=== PATIENT | male | born 1935 | race Caucasian/White ===

== ENCOUNTER → 2016-12-13 | Outpatient (CLI) | payer OTHER ==
--- NOTE | 2016-12-13 14:49 | REP ---
PA and lateral chest: Comparison is 01/27/2012. There are no infiltrates or effusions. There are no masses. There is a stable granuloma in the right lower lobe, unchanged. There is chronic mild interstitial coarsening compatible with chronic interstitial lung disease. Cardiac size is borderline, unchanged. A single lead pacemaker is again noted. The cam, mediastinum, and bony thorax are unchanged and unremarkable. Impression: There are no acute cardiopulmonary findings. There are findings compatible with chronic lung disease. There is a stable granuloma in the right lower lobe. Signed by Paul Mariscal MD 12/13/2016 02:40 P
== END ==
LOC: M WUC 13:41
PROVIDERS: ATTEND Nurse Practitioner Family
DX: R05 Cough (principal)

== ENCOUNTER 2018-05-08 08:44 | Outpatient (RCR) | payer OTHER, MEDICARE | END 2018-05-12 | disposition home or self-care (01) | LOC: M PT 08:44 | DX: M25.551 Pain in right hip (principal); M25.552 Pain in left hip; Z51.89 Encounter for other specified aftercare | CPT/HCPCS: 97162 ==

== ENCOUNTER 2018-05-17 10:22 | Outpatient (RCR) | payer OTHER | END 2018-06-11 | LOC: M PT 10:22 | DX: M25.551 Pain in right hip (principal); M25.552 Pain in left hip | CPT/HCPCS: 97110 ==

== ENCOUNTER 2018-05-25 09:28 | Day surgery (SDC) | payer OTHER ==
[~2018-05-25 09:28] MED LIST: MIDAZOLAM INJ 2 MG/2 ML VIAL (J2250) As Ordered
[2018-05-25] MEDS: TROPICAMIDE 1% OPHTH SOLN 2ML OS (10:01)
[2018-05-25] MEDS: OFLOXACIN 0.3 % (OCUFLOX) OPTH SOL 5ML OS (10:01)
[2018-05-25] MEDS: PHENYLEPHRINE 2.5% OPHTH SOL 2ML OS (10:01)
[2018-05-25] MEDS: PROPARACAINE 0.5% OPHTH SOL 15ML OS (10:01)
[2018-05-25] MEDS: POVIDONE-IODINE 5% OPHTH PREP SOL 30ML As Ordered (10:34)
[2018-05-25] MEDS: BALANCED SALT IRRIGATION SOLUTION 500ML BAG (FOR OR EYE MACHINE) As Ordered (10:35)
[2018-05-25] MEDS: CEFUROXIME 1MG/0.1ML INTRACAMERAL INJ As Ordered (10:35)
[2018-05-25] MEDS: LIDOCAINE 0.75%/EPINEPHRINE 0.025% IN BSS 1ML SYR INTRACAMERAL (OR ONLY) As Ordered (10:35)
[2018-05-25] MEDS: DUOVISC (0.50ML VISCOAT/0.55ML PROVISC) OPHTH KIT As Ordered (10:35)
== END 2018-05-25 11:21 | disposition home or self-care (01) ==
LOC: M SDC 09:28
DX: H25.12 Age-related nuclear cataract, left eye (principal); I48.91 Unspecified atrial fibrillation; Z95.0 Presence of cardiac pacemaker; Z79.01 Long term (current) use of anticoagulants; K21.9 Gastro-esophageal reflux disease without esophagitis; J44.9 Chronic obstructive pulmonary disease, unspecified; Z79.899 Other long term (current) drug therapy
CPT/HCPCS: 66984

== ENCOUNTER 2018-06-08 07:52 | Day surgery (SDC) | payer OTHER ==
[~2018-06-08 07:52] MED LIST changes: -MIDAZOLAM INJ 2 MG/2 ML VIAL (J2250) As Ordered; +OFLOXACIN 0.3 % (OCUFLOX) OPTH SOL 5ML OD; +PHENYLEPHRINE 2.5% OPHTH SOL 2ML OD; +PROPARACAINE 0.5% OPHTH SOL 15ML OD; +TROPICAMIDE 1% OPHTH SOLN 2ML OD
[2018-06-08] MEDS ORDERED: CEFUROXIME 1MG/0.1ML INTRACAMERAL INJ As Ordered (08:52)
[2018-06-08] MEDS: LIDOCAINE 0.75%/EPINEPHRINE 0.025% IN BSS 1ML SYR INTRACAMERAL (OR ONLY) As Ordered (10:06)
[2018-06-08] MEDS: POVIDONE-IODINE 5% OPHTH PREP SOL 30ML As Ordered (10:06)
[2018-06-08] MEDS: BALANCED SALT IRRIGATION SOLUTION 500ML BAG (FOR OR EYE MACHINE) As Ordered (10:06)
[2018-06-08] MEDS: DUOVISC (0.50ML VISCOAT/0.55ML PROVISC) OPHTH KIT As Ordered (10:06)
[2018-06-08] MEDS: CEFUROXIME 1MG/0.1ML INTRACAMERAL INJ As Ordered (10:07)
[2018-06-08] MEDS ORDERED: MIDAZOLAM INJ 2 MG/2 ML VIAL (J2250) As Ordered (10:09)
[2018-06-08] MEDS ORDERED: fentaNYL 100 MCG/2 ML INJECTION (J3010) As Ordered (10:09)
== END 2018-06-08 11:00 | disposition home or self-care (01) ==
LOC: M SDC 07:52
DX: H25.11 Age-related nuclear cataract, right eye (principal); I48.91 Unspecified atrial fibrillation; Z95.0 Presence of cardiac pacemaker; Z79.899 Other long term (current) drug therapy; Z79.01 Long term (current) use of anticoagulants; J44.9 Chronic obstructive pulmonary disease, unspecified; K21.9 Gastro-esophageal reflux disease without esophagitis
CPT/HCPCS: 66984

== ENCOUNTER → 2018-08-09 | Outpatient (REF) | payer OTHER ==
[2018-08-09 10:19] LABS: INR 4.02; PROTHROMBIN TIME 40.1 SECONDS (12.1-14.4)
== END ==
LOC: M LAB REF 10:06
DX: I48.2 Chronic atrial fibrillation (principal); Z79.01 Long term (current) use of anticoagulants
CPT/HCPCS: 85610

== ENCOUNTER 2018-08-13 18:19 | Emergency (ER) | payer OTHER ==
[2018-08-13 19:30] LABS: BASO % 0.2 % (0.0-1.0); EOS % 0.3 % (0.0-3.0); HEMATOCRIT 37.6 % (42.0-52.0); IMMATURE GRANULOCYTE % 0.4 % (0-3.0); LYMPH # 1.5 10^3/uL (1.5-4.5); LYMPH % 10.9 % (24.0-44.0); MEAN CORPUSCULAR HEMOGLOBIN 30.6 pg (27.0-33.0); MEAN CORPUSCULAR HGB CONC 34.6 g/dl (32.0-36.5); MEAN CORPUSCULAR VOLUME 88.5 fl (80.0-96.0); MONO # 1.2 10^3/uL (0.0-0.8); MONO % 8.5 % (0.0-5.0); NEUTROPHILS # 10.8 10^3/uL (1.8-7.7); NEUTROPHILS % 79.7 % (36.0-66.0); PLATELET COUNT, AUTOMATED 172 10^3/uL (150-450); RED BLOOD COUNT 4.25 10^6/uL (4.30-6.10); RED CELL DISTRIBUTION WIDTH 13.7 % (11.5-14.5); WHITE BLOOD COUNT 13.5 10^3/uL (4.0-10.0)
[2018-08-13 19:40] LABS: INR 1.64; PROTHROMBIN TIME 19.7 SECONDS (12.1-14.4)
[2018-08-13 20:07] LABS: ANION GAP 11 MEQ/L (8-16); BLOOD UREA NITROGEN 26 MG/DL (7-18); CARBON DIOXIDE LEVEL 26 MEQ/L (21-32); CHLORIDE LEVEL 103 MEQ/L (98-107); CPK CREATINE PHOSPHOKINASE 83 U/L (39-308); CREATININE FOR GFR 1.21 MG/DL (0.70-1.30); GLOMERULAR FILTRATION RATE > 60.0 (>35); GLUCOSE, FASTING 115 MG/DL (70-100); POTASSIUM SERUM 3.4 MEQ/L (3.5-5.1); SODIUM LEVEL 140 MEQ/L (136-145); TROPONIN I < 0.02 NG/ML (< 0.10)
[2018-08-13 20:46] LABS: LACTIC ACID SEPSIS PROTOCOL 1.6 MMOL/L (0.4-2.0)
[2018-08-13 21:02] LABS: D-DIMER QUANT 902.76 ng/ml (<500)
[2018-08-13] MEDS ORDERED: ISOVUE-370 76% 100ML VIAL (Q9967) As Ordered (21:14)
[2018-08-13 21:24] LABS: INFLUENZA A AMPLIFICATION NEGATIVE (NEGATIVE); INFLUENZA B AMPLIFICATION NEGATIVE (NEGATIVE)
[2018-08-13] MEDS: CEFDINIR 300 MG CAP (OMNICEF) PO (22:28)
[2018-08-13] MEDS: WARFARIN SOD 5 MG TAB PO (22:28)
== END 2018-08-13 22:38 | disposition home or self-care (01) ==
LOC: M ED 18:19
DX: J18.1 Lobar pneumonia, unspecified organism (principal); R04.2 Hemoptysis; R79.1 Abnormal coagulation profile; R06.02 Shortness of breath; I48.91 Unspecified atrial fibrillation; I10 Essential (primary) hypertension; Z87.891 Personal history of nicotine dependence; Z79.899 Other long term (current) drug therapy; Z79.01 Long term (current) use of anticoagulants; Z79.51 Long term (current) use of inhaled steroids
CPT/HCPCS: Q9967

== ENCOUNTER → 2018-12-21 | Outpatient (REF) | payer OTHER ==
[~2018-12-21] MED LIST changes: +CEFD300CAP PO; +FURO40TA2 PO; +LISI-538 PO; +METO50TA7 PO; -OFLOXACIN 0.3 % (OCUFLOX) OPTH SOL 5ML OD; +OMEP40CA2 PO; -PHENYLEPHRINE 2.5% OPHTH SOL 2ML OD; +PRAV40TA2 PO; -PROPARACAINE 0.5% OPHTH SOL 15ML OD; +SYMB16INH INH; -TROPICAMIDE 1% OPHTH SOLN 2ML OD; +WARF4TAB51 PO
== END ==
LOC: M LAB REF 12:31
PROVIDERS: ATTEND Nurse Practitioner Adult Health
DX: R31.9 Hematuria, unspecified (principal)

== ENCOUNTER → 2018-12-28 | Outpatient (REF) | payer OTHER | LOC: M LAB REF 12:31 | PROVIDERS: ATTEND Nurse Practitioner Adult Health | DX: R31.9 Hematuria, unspecified (principal) ==

== ENCOUNTER 2019-01-25 08:02 | Day surgery (SDC) | payer MEDICARE ==
[~2019-01-25] VITALS: Ht 177.8 cm; Wt 73.5 kg
[2019-01-25] MEDS ORDERED: NS 1,000 ML IV ONE (08:45)
[2019-01-25] MEDS ORDERED: LIDOCAINE 2% INJ 100 MG/5 ML SDV (FOR ANES.) As Ordered ONE (09:26)
[2019-01-25] MEDS ORDERED: PROPOFOL 200 MG/20 ML VIAL As Ordered ONE ×2 (09:26→09:43)
--- NOTE | 2019-01-25 09:46 | ROOR ---
Patient Name: Fausto Nunez Procedure Date: 01/25/2019 9:29 AM Date of : 1935 Age: 83 Room: [facility] Gender: Male Note Status: Finalized Procedure: Colonoscopy Indications: Rectal bleeding, Constipation, Diarrhea Providers: Stephen Canales Jr, MD Referring MD: Rae Vital NP Requesting Provider: Medicines: Propofol per Anesthesia Complications: No immediate complications. Procedure: Pre-Anesthesia Assessment: - Prior to the procedure, a History and Physical was performed, and patient medications and allergies were reviewed. The patient is competent. The risks and benefits of the procedure and the sedation options and risks were discussed with the patient. All questions were answered and informed consent was obtained. Patient identification and proposed procedure were verified by the physician and the nurse in the pre-procedure area and in the procedure room. Mental Status Examination: alert and oriented. Airway Examination: normal oropharyngeal airway and neck mobility. Respiratory Examination: clear to auscultation. CV Examination: normal. ASA Grade Assessment: III - A patient with severe systemic disease. After reviewing the risks and benefits, the patient was deemed in satisfactory condition to undergo the procedure. The anesthesia plan was to use moderate sedation / analgesia (conscious sedation). Immediately prior to administration of medications, the patient was re-assessed for adequacy to receive sedatives. The heart rate, respiratory rate, oxygen saturations, blood pressure, adequacy of pulmonary ventilation, and response to care were monitored throughout the procedure. The physical status of the patient was re-assessed after the procedure. The Colonoscope was introduced through the anus and advanced to the sigmoid colon. The colonoscopy was performed without difficulty. The patient tolerated the procedure well. The quality of the bowel preparation was adequate. Findings: The rectum appeared normal. A fungating, infiltrative and ulcerated partially obstructing large mass was found in the sigmoid colon. The mass was circumferential. Oozing was present. Biopsies were taken with a cold forceps for histology. Area was tattooed with an injection of 3 mL of Spot (carbon black). Impression: - The rectum is normal. - Likely malignant partially obstructing tumor in the sigmoid colon. Biopsied. Tattooed. Recommendation: - Await pathology results. Stephen Canales MD Stephen Canales Jr, MD 01/25/2019 9:46:16 AM Electronically signed by Stephen Canales Jr, MD Number of Addenda: 0 Note Initiated On: 01/25/2019 9:29 AM Estimated Blood Loss: Estimated blood loss: none.
[2019-01-25 10:15] VITALS: BP 147/77
== END 2019-01-25 10:20 | disposition home or self-care (01) ==
LOC: M OPP 08:02
PROVIDERS: ATTEND Surgery
DX: K62.5 Hemorrhage of anus and rectum (principal); R19.7 Diarrhea, unspecified; N18.3 Chronic kidney disease, stage 3 (moderate); K21.9 Gastro-esophageal reflux disease without esophagitis; Z79.899 Other long term (current) drug therapy; Z87.891 Personal history of nicotine dependence

== ENCOUNTER → 2019-01-31 | Outpatient (CLI) | payer MEDICARE ==
[~2019-01-31] MED LIST changes: +METO1TAB7 PO
[2019-01-31 15:45] LABS: BASO % 0.6 % (0.0-1.0); EOS # 0.1 10^3/uL (0.0-0.50); HEMOGLOBIN 12.6 g/dl (13.5-17.5); LYMPH # 1.7 10^3/uL (1.5-4.5); LYMPH % 34.7 % (24.0-44.0); MEAN CORPUSCULAR HEMOGLOBIN 29.6 pg (27.0-33.0); MEAN CORPUSCULAR HGB CONC 33.2 g/dl (32.0-36.5); MEAN CORPUSCULAR VOLUME 89.2 fl (80.0-96.0); MONO # 0.6 10^3/uL (0.0-0.8); MONO % 12.9 % (0.0-5.0); NEUTROPHILS # 2.5 10^3/uL (1.8-7.7); NEUTROPHILS % 49.6 % (36.0-66.0); PLATELET COUNT, AUTOMATED 145 10^3/uL (150-450); RED BLOOD COUNT 4.26 10^6/uL (4.30-6.10)
[2019-01-31 16:07] LABS: CALCIUM LEVEL 8.2 MG/DL (8.8-10.2); CREATININE FOR GFR 1.41 MG/DL (0.70-1.30); GLOMERULAR FILTRATION RATE 51.1 (>35); TOTAL PROTEIN 6.5 GM/DL (6.4-8.2)
== END ==
LOC: M LAB 15:10
PROVIDERS: ATTEND Surgery
DX: C18.7 Malignant neoplasm of sigmoid colon (principal)

== ENCOUNTER → 2019-02-09 | Outpatient (CLI) | payer MEDICARE ==
[~2019-02-09] MED LIST changes: +GASTROGRAFIN SOLUTION 30ML (Q9963) As Ordered ONE; +ISOVUE-370 76% 100ML VIAL (Q9967) As Ordered ONE
--- NOTE | 2019-02-09 15:28 | REP ---
Clinical: History of sigmoid colon carcinoma. Technique: Axial contrast enhanced images from the lung bases to the pubic symphysis using oral (per protocol) and 100 ml Isovue 370 intravenous contrast material with precontrast and delayed images of the abdomen as well as coronal and sagittal re-formations. Findings: Lung bases demonstrate minimal bibasilar fibroatelectatic changes and bronchiectasis along with calcified granuloma in the right lower lobe. Cardiomegaly noted. The liver is essentially unremarkable. A 1.2 cm cyst is identified in the medial segment left lobe. Spleen demonstrate small parenchymal calcifications suggesting prior granulomatous disease. Pancreas, bilateral adrenal glands and kidneys are essentially normal. Cholelithiasis noted without acute cholecystitis. The enteric system demonstrates diffuse fecal stasis without obstruction or acute inflammatory process. Colonic diverticulosis noted. Mucosal thickening to the sigmoid is appreciated along with focal area measuring approximately 5.7 cm in length which demonstrates considerable mucosal thickening and near complete obstruction to the lumen (images [id number]) possibly representing the area of sigmoid carcinoma. Few adjacent lymph nodes are nonspecific and measure up to approximately 7 mm. Further evaluation of the pelvis demonstrates enlarged prostate gland with mass effect on the base of the bladder small fat containing left inguinal hernia noted. No ascites. No free air. No retroperitoneal adenopathy. Atherosclerotic changes to the aorta and vasculature noted without aneurysm. Musculoskeletal structures demonstrate degenerative changes without focal osseous abnormality. Impression: 1. Focal area of mucosal thickening narrowing to the underlying lumen involving the mid/distal sigmoid colon possibly related to the given history of sigmoid carcinoma. Small adjacent lymph nodes measure up to approximately 7 mm. 2. Colonic diverticulosis 3. Hepatic hypodensity likely cyst. 4. Enlarged prostate gland with mass effect on the base of the bladder. Electronically Signed by Matthew Blunt MD 02/09/2019 03:20 P
== END ==
LOC: M RAD 12:23
PROVIDERS: ATTEND Surgery
DX: C18.7 Malignant neoplasm of sigmoid colon (principal); K57.90 Diverticulosis of intestine, part unspecified, without perforation or abscess without bleeding; N40.0 Benign prostatic hyperplasia without lower urinary tract symptoms
CPT/HCPCS: 74178; Q9963; Q9967

== ENCOUNTER 2019-02-16 05:37 | Inpatient (IN) | payer MEDICARE ==
--- NOTE | 2019-02-15 11:53 | HPE ---
DATE OF ADMISSION: 02/16/2019 HISTORY OF PRESENT ILLNESS: The patient is an 83-year-old white male who presented to my office a month ago with a referral for rectal bleeding that has been going on for a month. He has had some abdominal pain, crampy abdominal pain with constipation and diarrhea. He has had some weight loss over the last several months. He has had abdominal bloating, cramps and was referred to the office for colonoscopy. He proceeded with a colonoscopy and indeed revealed a nearly obstructing malignancy in the sigmoid colon consistent with a colon cancer. The biopsy showed a high-grade dysplasia with most likely invasive cancer, but from its appearance with ulcerations etc. I anticipate this is a malignancy at the minimum T2/T3 lesion. In any case, the patient has had some rectal bleeding associated with his anticoagulation. PAST MEDICAL HISTORY: Significant for: History of hypertension. Hypercholesterolemia. Coronary artery disease. Kidney disease. Lung disease. History of pacemaker placement. History of prostate enlargement. History of cataract surgery. MEDICATIONS: Include: - Coumadin - Lasix - Atrovent - lisinopril - metoprolol - omeprazole - pravastatin - Symbicort PHYSICAL EXAMINATION: Physical exam reveals an 83-year-old male who looks stated age. HEENT is unremarkable. Neck supple without adenopathy. Lungs are clear to auscultation without crackles, wheeze or rhonchi. Heart is regular without murmur with a few irregular beats. Abdomen is softly distended, nontender. No guarding. No rebound. No peritoneal signs are appreciated. IMPRESSION AND PLAN: The patient has evidence of elevated CEA level of 3.6. CT consistent with a sigmoid colon mass and evidence of sigmoid colon cancer on his colonoscopy. We are proceeding with a laparoscopic sigmoid colon resection with possible splenic flexure takedown. The risks as well as benefits have been discussed with the patient at length, those including but not limited to infection, bleeding, damage to surrounding structures, including bowel, bladder nerve, vessels, kidney, ureter, spleen, and possible need for open operative intervention as well as possible need for ostomy. The patient understands the risks and would like to proceed with this as soon as possible. The patient understands that he will be hospitalized for several days postoperatively until his bowel function returns and then he will be discharged to home when he is doing well. Edited 02/15/2019 @ 1213 [facility]
[2019-02-16] VITALS (8 sets, daily range): BP systolic 149–164; BP diastolic 77–79; O2SAT 96
[~2019-02-16] VITALS: Ht 177.8 cm; Wt 77.5 kg
[~2019-02-16 05:37] MED LIST changes: -GASTROGRAFIN SOLUTION 30ML (Q9963) As Ordered ONE; -ISOVUE-370 76% 100ML VIAL (Q9967) As Ordered ONE
[2019-02-16] MEDS ORDERED: LR 1,000 ML IV SCH ×2 (06:00→11:30)
[2019-02-16] MEDS ORDERED: ERTAPENEM SODIUM 1 GM in NS MINI-BAG PLUS 50 ML IV ONE (06:00)
[2019-02-16 06:45] LABS: INR 1.25; PROTHROMBIN TIME 15.9 SECONDS (12.1-14.4)
[2019-02-16] MEDS ORDERED: BUPIVACAINE LIPOSOME/PF 1.3% 20ML VIAL (13.3MG/ML)(EXPAREL)(C9290 PER1MG) As Ordered ONE (07:03)
[2019-02-16] MEDS ORDERED: BUPIVACAINE HCL 0.25% 10 ML VIAL As Ordered ONE (07:03)
[2019-02-16] MEDS ORDERED: GLUCAGON FOR INJ 1 MG VIAL (J1610) As Ordered ONE (07:03)
[2019-02-16] MEDS ORDERED: BUPIVACAINE/EPIN 0.5% 30 ML VIAL As Ordered ONE (07:03)
[2019-02-16] MEDS ORDERED: ALBUTEROL SULFATE 2.5 MG/0.5 ML INH NEB SOLN As Ordered ONE (07:07)
[2019-02-16] MEDS ORDERED: dexameTHASONE 4 MG/ML 1ML VIAL (J1100) As Ordered ONE (07:18)
[2019-02-16] MEDS ORDERED: MIDAZOLAM INJ 2 MG/2 ML VIAL (J2250) As Ordered ONE (07:18)
[2019-02-16] MEDS ORDERED: ONDANSETRON 4MG/2ML VIAL (J2405) As Ordered ONE (07:18)
[2019-02-16] MEDS ORDERED: LIDOCAINE 2% INJ 100 MG/5 ML SDV (FOR ANES.) As Ordered ONE (07:18)
[2019-02-16] MEDS ORDERED: fentaNYL 250 MCG/5 ML INJECTION (J3010) As Ordered ONE (07:18)
[2019-02-16] MEDS ORDERED: PROPOFOL 200 MG/20 ML VIAL As Ordered ONE (07:18)
[2019-02-16] MEDS ORDERED: ROCURONIUM BROMIDE 50 MG/5 ML VIAL As Ordered ONE ×2 (07:18→08:58)
[2019-02-16] MEDS ORDERED: ALBUTEROL SULFATE 2.5 MG/0.5 ML INH NEB SOLN INH ONE (08:00)
[2019-02-16] MEDS ORDERED: PHENYLephrine HCL 500 MCG/5 ML (100MCG/ML) SYRINGE (J2370) As Ordered ONE (08:16)
[2019-02-16] MEDS ORDERED: LIDOCAINE 2% 5ML JELLY UROJET As Ordered ONE (08:52)
[2019-02-16] MEDS ORDERED: LISINOPRIL 20 MG TAB PO SCH (09:00)
[2019-02-16] MEDS ORDERED: HYDROmorphone HCL 2 MG/ML 1ML VIAL (J1170) As Ordered ONE (09:02)
[2019-02-16] MEDS ORDERED: NS 1,000 ML IV SCH (10:48)
[2019-02-16] MEDS ORDERED: MORPHINE 1MG/ML IN 0.9% NACL 100ML IV BAG As Ordered ONE (10:58)
[2019-02-16] MEDS ORDERED: MORPHINE 1MG/ML IN 0.9% NACL 100ML IV BAG IV PRN (11:00)
[2019-02-16] MEDS ORDERED: NALOXONE INJ 0.4 MG/1 ML VIAL (J2310) IV PRN (11:00)
[2019-02-16] MEDS ORDERED: IPRATROPIUM 0.5MG/ALBUTEROL 2.5MG INH SOL UD 3ML (DUONEB)(J7620) NEB PRN (11:00)
[2019-02-16] MEDS ORDERED: EPIDURAL/PCA KEYS XX PRN (11:00)
[2019-02-16] MEDS ORDERED: PROMETHAZINE INJ 25 MG/ML VIAL (J2550) IV PRN (11:00)
[2019-02-16] MEDS ORDERED: NALBUPHINE HCL 10 MG/ML AMP (J2300) IV PRN (11:00)
[2019-02-16] MEDS ORDERED: METOCLOPRAMIDE INJ 10MG/2ML VIAL (J2765) IV PRN (11:00)
[2019-02-16] MEDS ORDERED: ONDANSETRON 4MG/2ML VIAL (J2405) IV PRN ×2 (11:00→11:30)
[2019-02-16] MEDS ORDERED: PERCOCET 5MG/325MG TAB PO PRN (11:30)
[2019-02-16] MEDS ORDERED: fentaNYL 100 MCG/2 ML INJECTION (J3010) IV PRN (11:30)
[2019-02-16] MEDS ORDERED: HYDROMORPHONE HCL 0.5 MG/ 0.5 ML SYRINGE (J1170 PER 1) IV PRN (11:30)
[2019-02-16] MEDS ORDERED: OXYMETAZOLINE NASAL SPRAY (AFRIN) As Ordered ONE (12:35)
[2019-02-16] MEDS: PRAVASTATIN 20 MG TAB PO SCH (13:49)
[2019-02-16] MEDS: PANTOPRAZOLE 40MG INJ (PROTONIX) (C9113) IV SCH (13:49)
[2019-02-16] MEDS: NS 1,000 ML IV SCH ×2 (13:50→22:10)
[2019-02-16] MEDS: IPRATROPIUM 0.5MG/ALBUTEROL 2.5MG INH SOL UD 3ML (DUONEB)(J7620) NEB SCH ×2 (15:07→19:10)
--- NOTE | 2019-02-16 16:12 | CR.PDOC ---
General Date of Consultation: Feb 16, 2019 Consultation HPI 83 yo M with a medical history of a fib on coumadin, COPD, former smoker, HTN, HLD, and BPH, is s/p sigmoid colon surgery. The patient noticed rectal bleeding, for which he was seen by Dr. Canales. He has had abdominal pain with alternating constipation and diarrhea. Colonoscopy showed an obstructing mass in the sigmoidal colon. The patient had surgical resection of the tumor. Medicine was consulted for medical management. Currently, the patient has pain, and uses morphine MAIL ORDER SORTER pump. Pain is relatively controlled. He has not passed gas yet. PMH HTN, HLD, COPD, BPH, pacemaker PSH Prostate surgery Allergy NKDA FH Mother kidney disease, brothers and sister lung cancer from smoking SH Former smoker, quit at age of 48 Denies EtOH or drug abuse ROS GENERAL: The patient denies fevers, chills, or night sweats. HEENT: The patient denies headache, vision change, hearing loss, nosebleed or sore throat. CARDIOVASCULAR: Denies chest pain, palpitation or arrhythmia. RESPIRATORY: Denies shortness of breath, cough or wheezing. GASTROINTESTINAL: Admits to pain in the surgical site, denies nausea, vomiting, diarrhea. EXTREMITIES: Denies swelling. ENDOCRINE: Denies heat or cold intolerance or excessive thirst. NEUROLOGIC: Denies numbness or tingling. MUSCULOSKELETAL: Denies joint pain. PSYCHIATRIC: Denies anxiety or depression. HEMATOLOGICAL: Denies abnormal bleeding. PHYSICAL EXAMINATION: VITAL SIGNS: Stable. He is on 2 L O2. GENERAL: The patient is not in acute distress. Anicteric sclerae. Pupils are equal and reactive. No lesions in the oral cavity. NECK: Supple, nontender. CARDIOVASCULAR: Regular rhythm and rate. No murmurs, rubs or gallops. RESPIRATORY: Clear to auscultation bilaterally. No rales, wheezing or rhonchi. ABDOMEN: Soft, nontender, nondistended. Surgical wound wrapped. EXTREMITIES: No cyanosis, clubbing. NEUROLOGIC: Cranial nerves are grossly intact. He is AO x3. SKIN: No other sores or blisters. Assessment and Plan 83 yo M is s/p surgical resection of the tumor in the sigmoid colon. # HTN, HLD, a fib - Currently, heart rate is well controlled. - Hold off coumadin. Once the patient is deemed to have no more risk of bleeding from the surgical wound, it will be re-initiated. - Continue metoprolol, and lisinopril, his home medications. - Continue statin, his home medication. # Surgical pain - The patient is morphine MAIL ORDER SORTER pump. Pain is adequately controlled currently. # COPD - Continue symbicort and duoneb ATC # GI ppx - Continue protonix Vital Signs/I&O Vital Signs Date Time Temp Pulse Resp B/P (MAP) Pulse Ox O2 Delivery O2 Flow Rate FiO2 02/16/19 15:21 97.6 86 9 149/79 (102) 99 2.0 Laboratory Data Labs 24H Laboratory Tests 2 02/16/19 06:18: Prothrombin Time 15.9H, Prothromb Time International Ratio 1.25 CBC/BMP Laboratory Tests 02/16/19 06:02 Allergies Coded Allergies: No Known Allergies (Unverified , 01/16/19) Home Medications Scheduled Budesonide/Formoterol (Symbicort 160-4.5 Mcg Inhaler) 60 Puff/Inhaler Aers, 2 PUFF INH BID for 30 Days, #1 (Reported) Furosemide (Furosemide) 40 Mg Tab, 40 MG PO DAILY, (Reported) Lisinopril (Lisinopril) 20 Mg Tab, 20 MG PO DAILY, (Reported) Metoprolol Succinate (Metoprolol Succinate) 50 Mg Tab.er.24h, 50 MG PO DAILY, (Reported) Pravastatin Sodium (Pravastatin Sodium) 40 Mg Tab, 40 MG PO DAILY, (Reported) Warfarin Sodium (Warfarin Sodium) 2 Mg Tab, 2 MG PO DAILY, (Reported) YARELI DODSON MD Feb 16, 2019 16:12
--- NOTE | 2019-02-16 16:43 | CR ---
DATE OF CONSULTATION: 02/16/2019 This is an intraoperative consult from Dr. Stephen Canales. REASON FOR CONSULTATION: Hematuria. HISTORY: Mr. Nunez is an 83-year-old gentleman undergoing laparoscopic (lap) assisted sigmoid colectomy for malignant disease. A small caliber catheter was placed in case and went in without difficulty; however, the patient started having bleeding and recurrent clotting of the catheter, which has now been withdrawn. Per history, he has prior transurethral resection of the prostate (TURP). He has been on chronic Coumadin therapy but current INR 1.25. For the remainder of his past medical, surgical, social, family history, review o systems, please refer to the dictated history and physical on the chart. History is obtained from the chart, the patient being under anesthetic. Of note, this is an intraoperative consult. At the time of my arrival in the operating room, the patient is anesthetized and undergoing microscopic sigmoid colectomy. He is draped out and in a lithotomy position. Examination of the genitalia shows descended testes, no mass. The phallus is without lesions. He is circumcised. Remainder of exam unremarkable. IMPRESSION: Hematuria causing clot obstruction with possible urethral false passage. PLAN: Endoscopic evaluation with flexible cystoscopy for catheter placement.
[2019-02-16] MEDS: SYMBICORT 160/4.5MCG INHALER 6GM INH SCH (19:10)
--- NOTE | 2019-02-16 23:13 | RO ---
DATE OF PROCEDURE: 02/16/2019 PREPROCEDURE DIAGNOSIS: POSTPROCEDURE DIAGNOSIS: PROCEDURE: Flexible cystoscopy with catheter placement. SURGEON: Isaiah Car MD RIM BUSTER: ANESTHESIA: General. INDICATION: This 83-year-old man was found to have gross hematuria upon placement of a catheter, which was difficult, the catheter becoming occluded on several occasions despite being passed fairly easily into the bladder. There was some question of urethral false passage. The patient does have a past history of Coumadin use, but current INR 1.25. DESCRIPTION OF PROCEDURE: With the patient under anesthesia, a 16-Namibian flexible cystoscope was advanced without difficulty into the urethra. On inspection, the urethra was without lesions. The urethral sphincter was noted to be intact. The prostatic fossa appeared open but was actively oozing. There may have been some undermining of the bladder neck, but we were able to readily pass the cystoscope into the bladder, which was widely open. Ureteral orifices were visualized and effluxing clear urine There was some blood and clot in the bladder partially obscuring the detailed view of the bladder mucosa. We passed a flexible 0.38 inch wire through the scope into the bladder, and the scope was withdrawn. A 20-Namibian [place] Tip catheter was passed over the wire without difficulty, and the returning urine was rosae. The catheter was inflated with 10 mL. The direction of the case was returned to Dr. Canales. RECOMMENDATIONS: Would advise leaving the catheter per usual postoperative routine. Please contact me if the patient is in need of any assistance following catheter removal. The catheter may be irrigated as needed should clots appear. Of note, no intraoperative complications. Blood loss: Less than 10 mL.
[2019-02-17] MEDS: IPRATROPIUM 0.5MG/ALBUTEROL 2.5MG INH SOL UD 3ML (DUONEB)(J7620) NEB SCH ×4 (01:42→20:00)
[2019-02-17 02:00] VITALS: BP 152/77
[2019-02-17] MEDS: NS 1,000 ML IV SCH ×3 (02:48→18:48)
[2019-02-17 06:00] VITALS: BP 149/69
[2019-02-17 06:01] LABS: HEMATOCRIT 38.6 % (42.0-52.0); HEMOGLOBIN 12.7 g/dl (13.5-17.5); MEAN CORPUSCULAR HEMOGLOBIN 30.3 pg (27.0-33.0); MEAN CORPUSCULAR HGB CONC 32.9 g/dl (32.0-36.5); MEAN CORPUSCULAR VOLUME 92.1 fl (80.0-96.0); PLATELET COUNT, AUTOMATED 171 10^3/uL (150-450); RED BLOOD COUNT 4.19 10^6/uL (4.30-6.10); WHITE BLOOD COUNT 9.2 10^3/uL (4.0-10.0)
[2019-02-17 06:28] LABS: ALBUMIN 2.6 GM/DL (3.2-5.2); ALT/SGPT 21 U/L (12-78); BILIRUBIN,TOTAL 0.8 MG/DL (0.2-1.0); BLOOD UREA NITROGEN 16 MG/DL (7-18); CALCIUM LEVEL 7.9 MG/DL (8.8-10.2); CARBON DIOXIDE LEVEL 27 MEQ/L (21-32); CHLORIDE LEVEL 108 MEQ/L (98-107); GLOMERULAR FILTRATION RATE > 60.0 (>35); GLUCOSE, FASTING 93 MG/DL (70-100); POTASSIUM SERUM 4.7 MEQ/L (3.5-5.1); SODIUM LEVEL 140 MEQ/L (136-145); TOTAL PROTEIN 6.1 GM/DL (6.4-8.2)
[2019-02-17] MEDS ORDERED: ERTAPENEM SODIUM 1 GM in NS MINI-BAG PLUS 50 ML IV ONE (08:00)
[2019-02-17] MEDS: PANTOPRAZOLE 40MG INJ (PROTONIX) (C9113) IV SCH (08:17)
[2019-02-17] MEDS: PRAVASTATIN 20 MG TAB PO SCH (08:20)
[2019-02-17] MEDS: LISINOPRIL 20 MG TAB PO SCH ×2 (08:20→21:30)
[2019-02-17] MEDS: SYMBICORT 160/4.5MCG INHALER 6GM INH SCH ×2 (08:58→19:47)
[2019-02-17] MEDS ORDERED: METOPROLOL SUCC (TopROL XL) 50MG **XL** TAB PO SCH (09:00)
[2019-02-17] MEDS: ALVIMOPAN 12 MG CAPSULE (ENTEREG) PO SCH ×2 (09:57→21:30)
[2019-02-17 10:00] VITALS: BP 149/71
--- NOTE | 2019-02-17 13:38 | IPNPDOC ---
Subjective Date Seen The patient was seen on 02/17/19. Subjective Chief Complaint/HPI The patient feels better. Pain is less. Breathing is the same, no worsening or better. Has not passed gas yet. No BM. General: Denies: ROS Unobtainable, Chills, Night Sweats, Fatigue, Malaise, Normal Appetite, Other Symptoms Constitutional: Denies: Chills, Fever, Malaise, Night Sweats, Weakness, Fatig ue, Weight Loss, Lethargy, Other Eyes: Denies: Pain, Vision change, Conjunctivae inflammation, Eyelid inflammation, Redness, Other ENT: Denies: Head Aches, Ear Pain, Dysphagia, Sinus Congestion, Post Nasal Drip, Sore Throat, Epistaxis, Other Symptoms Skin: Denies: Rash, Lesions, Jaundice, Bruising, Itching, Dry, Breakdown, Nail Changes, Other Pulmonary: Reports: Dyspnea Cardiovascular: Denies: Chest Pain, Palpitations, Orthopnea, Paroxysmal Noc. Dyspnea, Edema, Lt Headedness, Other Symptoms Gastrointestinal: Reports: Abdominal Pain Genitourinary: Denies: Dysuria, Frequency, Incontinence, Hematuria, Retention, Other Symptoms Hematologic: Denies: Bruising, Bleeding Excessively, Petecchia, Purpura, Enlarged Lymph Nodes, Other Hematologic Endocrine: Denies: Polydipsia, Polyphagia, Polyuria, Heat Intolerance, Cold Intolerance, Other Endocrine Sx Musculoskeletal: Denies: Neck Pain, Back Pain, Shoulder Pain, Arm Pain, Hand Pain, Leg Pain, Foot Pain, Joint Pain, Muscle Pain, Spasms, Other Symptoms Neurological: Denies: Weakness, Numbness, Incoordination, Change in speech, Confusion, Seizures, Other Symptoms Psych: Denies: Mood Normal, Anxiety, Depression, Memory Issues, Thoughts of Self Harm, Anger, Thoughts of Harming Other, Other Psych Objective Physical Examination General Exam: Positive: Alert Eye Exam: Positive: PERRLA ENT Exam: Positive: Atraumatic, Mucous membr. moist/pink Neck Exam: Positive: Supple Chest Exam: Positive: Clear to auscultation Heart Exam: Positive: Irregular Rhythm Telemetry: Positive: No significant arrhythmia Abdomen Exam: Positive: Other (surgical wound) Extremity Exam: Positive: Other (no edema) Skin Exam: Positive: Nl turgor and temperature Neuro Exam: Positive: Normal Speech Psych Exam: Positive: Mood NL Assessment /Plan Problems (1) Colon cancer Problem Text: # HTN, HLD, a fib - Currently, heart rate is well controlled. - Hold off coumadin. Once the patient is deemed to have no more risk of bleeding from the surgical wound, it will be re-initiated. He still has bloody oozing. - Continue metoprolol. Lisinopril 20 daily was increased to 20 BID, given SBP 140-150 persistently. - Continue statin, his home medication. # Surgical pain - The patient is morphine PRINT DECORATOR pump. Pain is adequately controlled currently. # COPD - Continue symbicort and duoneb ATC # GI ppx - Continue protonix # Urination - Urology is following, putting the espinosa. Plan/VTE VTE Prophylaxis Ordered?: No (temporarily held due to surgical wound bleeding) VS, I&O, 24H, Fishbone Vital Signs/I&O Vital Signs Date Time Temp Pulse Resp B/P (MAP) Pulse Ox O2 Delivery O2 Flow Rate FiO2 02/17/19 10:00 97.8 81 10 149/71 (97) 94 02/16/19 17:38 2.0 I&O- Last 24 Hours up to 6 AM 02/17/19 06:00 Intake Total 4100 ml Output Total 935 ml Balance 3165 ml Laboratory Data 24H LABS Laboratory Tests 2 02/17/19 05:20: Nucleated Red Blood Cells % (auto) 0.0, Anion Gap 5L, Glomerular Filtration Rate > 60.0, Blood Urea Nitrogen 16, Creatinine 1.10, Sodium Level 140, Potassium Level 4.7#, Chloride Level 108H, Carbon Dioxide Level 27, Calcium Level 7.9L, Aspartate Amino Transf (AST/SGOT) 28, Alanine Aminotransferase (ALT/SGPT) 21, Alkaline Phosphatase 63, Total Bilirubin 0.8, Total Protein 6.1L, Albumin 2.6L, Albumin/Globulin Ratio 0.74L CBC/BMP Laboratory Tests 02/17/19 05:20 Red Blood Count 4.19 L, Mean Corpuscular Volume 92.1, Mean Corpuscular Hemoglobin 30.3, Mean Corpuscular Hemoglobin Concent 32.9, Red Cell Distribution Width 15.2 H, Calcium Level 7.9 L, Aspartate Amino Transf (AST/SGOT) 28, Alanine Aminotransferase (ALT/SGPT) 21, Alkaline Phosphatase 63, Total Bilirubin 0.8, Total Protein 6.1 L, Albumin 2.6 L YARELI DODSON MD Feb 17, 2019 13:38
--- NOTE | 2019-02-17 13:58 | IPN ---
DATE: 02/17/2019 The patient has done very well overnight without any complaints. No nausea, no vomiting. No flatus. No bowel movements but overall is sitting up in the chair feeling quite good. He has been afebrile. His urine output has been good and clearing up quite nicely. His Kwasi-Barrientos drain is serosanguineous. Abdomen is softly distended, nontender. Dressings are dry, intact. IMPRESSION AND PLAN: The patient is status post sigmoid colectomy with coloproctostomy and overall seems to be doing well from surgical standpoint and slowly progressing his activity is reasonable at this time. Typically 48 hours to a little bit longer is when it takes the bowel to return its function and thus will keep him nothing by mouth for today and probably start him on some clear liquids or at least some sips of clears tomorrow. Encouraged him to increase his activity today and will re-evaluate him later.
[2019-02-17 14:00] VITALS: BP 148/72
--- NOTE | 2019-02-17 14:10 | RO ---
DATE OF PROCEDURE: 02/16/2019 PREOPERATIVE DIAGNOSIS: Sigmoid colon cancer. POSTOPERATIVE DIAGNOSIS: Sigmoid colon cancer. PROCEDURE: Laparoscopic sigmoid colectomy with coloproctostomy (LAR). SURGEON: Stephen Canales Jr., MD RECORDS MANAGEMENT ENGINEER: Paul Swanson DO (provided assistance with retraction, bowel resection, and anastomosis). ANESTHESIA: General endotracheal anesthesia. ESTIMATED BLOOD LOSS (EBL): Minimal. FLUIDS: Crystalloid. DESCRIPTION OF PROCEDURE: Brief procedure summary: The patient was brought to the operating room and was given general anesthesia. After adequate anesthesia and preoperative antibiotics were given, the patient was prepped and draped in usual sterile fashion. Next, a supraumbilical incision was made with skin knife. Blunt dissection was carried down to fascia. Fascia was entered using a Veress needle, insufflated to 15 mm of pressure. A dilating 10 mm trocar was placed under this at this time, and left lower quadrant 5 mm, right lower quadrant 12 mm, left upper quadrant 5 mm, and right upper quadrant 5 mm trocars were placed. The patient was placed in steep Trendelenburg at this time, and the bowel was looped in the pelvis and adherent to the pelvic sidewall on the right-hand side. The targeting with the carbon spot had been performed preoperatively, and I could see the distal end of the tumor in this area. In any case, once this was identified, the dissection of the descending colon/sigmoid colon on the white line of Toldt was performed with harmonic scalpel all the way down to the pelvic reflection. Given the twist of the distal sigmoid colon at the peritoneal reflection, it was quite difficult to get on the backside of this, but eventually I was able to get on the backside of this and mobilized up this sigmoid colon. Then, the right side of the peritoneum was taken down with harmonic scalpel, as well. In the middle of this dissection, it was obvious that the bladder was starting to distend up more, and we had some difficulties with emptying the bladder/the Stewart catheter working, and what was obvious was that the catheter was not functioning well; and thus, after attempts were made at reinserting a Stewart, at this time, the urologist was asked to come by and place a Stewart, which was performed without incident. Then, we continued on our dissection and our operative intervention, where a window around the sigmoid vessels was created. The sigmoid vessels were taken with [place] 60 vascular load, and the rectal branch off the sigmoid was taken with the [place] 60 stapler, and the rectum at the rectosigmoid junction was taken with [place] 60 green load. At this point, it seemed like I needed a little extra room to bring things down; and thus, I mobilized the descending colon a little bit further along the white line of Toldt, mobilizing off the Gerota's on this side, I could still see the ureter throughout its course quite nicely; and care was taken to avoid dissection in that plane. Next, the bowel was brought out through a periumbilical incision and transected after placing a 29 EEA anvil within the proximal bowel. Stapled and then an anastomosis was created, and the doughnuts were intact. Air insufflation revealed no air leak, and the Kwasi-Barrientos drain was left in the bed of the dissection. The right lower quadrant 12 mm trocar was closed with a Delano-Herb. All incisions were closed with robert. Exparel was used in the periumbilical incision, as well as in the right lower quadrant incision. A dry sterile dressing was applied. The patient was awakened, extubated, brought to the recovery room awake, alert, and hemodynamically stable. Sponge and needle counts correct times two. MTDD
[2019-02-17 18:00] VITALS: BP 156/78
[2019-02-17 22:00] VITALS: BP 158/81; O2SAT 92
[2019-02-18 02:00] VITALS: BP 150/82
[2019-02-18] MEDS: IPRATROPIUM 0.5MG/ALBUTEROL 2.5MG INH SOL UD 3ML (DUONEB)(J7620) NEB SCH ×4 (02:00→20:00)
[2019-02-18] MEDS: NS 1,000 ML IV SCH (05:07)
[2019-02-18 06:00] VITALS: BP 156/87
[2019-02-18 06:27] LABS: HEMOGLOBIN 12.7 g/dl (13.5-17.5); MEAN CORPUSCULAR HEMOGLOBIN 29.3 pg (27.0-33.0); MEAN CORPUSCULAR HGB CONC 32.6 g/dl (32.0-36.5); MEAN CORPUSCULAR VOLUME 90.1 fl (80.0-96.0); PLATELET COUNT, AUTOMATED 183 10^3/uL (150-450); RED BLOOD COUNT 4.33 10^6/uL (4.30-6.10); WHITE BLOOD COUNT 7.6 10^3/uL (4.0-10.0)
[2019-02-18 06:47] LABS: BLOOD UREA NITROGEN 22 MG/DL (7-18); CALCIUM LEVEL 8.5 MG/DL (8.8-10.2); CARBON DIOXIDE LEVEL 22 MEQ/L (21-32); CHLORIDE LEVEL 112 MEQ/L (98-107); CREATININE FOR GFR 1.02 MG/DL (0.70-1.30); GLOMERULAR FILTRATION RATE > 60.0 (>35); GLUCOSE, FASTING 83 MG/DL (70-100); POTASSIUM SERUM 4.6 MEQ/L (3.5-5.1); SODIUM LEVEL 141 MEQ/L (136-145)
[2019-02-18] MEDS: SYMBICORT 160/4.5MCG INHALER 6GM INH SCH ×2 (07:54→21:04)
[2019-02-18] MEDS ORDERED: METOPROLOL SUCC *XL* 25MG TAB (TopROL *XL*) PO SCH (09:00)
[2019-02-18] MEDS: ALVIMOPAN 12 MG CAPSULE (ENTEREG) PO SCH ×2 (09:08→21:01)
[2019-02-18] MEDS: PRAVASTATIN 20 MG TAB PO SCH (09:08)
[2019-02-18] MEDS: LISINOPRIL 20 MG TAB PO SCH ×2 (09:09→21:01)
[2019-02-18] MEDS: PANTOPRAZOLE 40MG INJ (PROTONIX) (C9113) IV SCH (09:09)
[2019-02-18 10:00] VITALS: BP 158/88
--- NOTE | 2019-02-18 13:37 | IPNPDOC ---
Subjective Date Seen The patient was seen on 02/18/19. Subjective Chief Complaint/HPI The patient feels better. He has not passed gas yet, no BM yet. He still has "pink" discharge from the wound. Pain is better controlled today. General: Denies: ROS Unobtainable, Chills, Night Sweats, Fatigue, Malaise, Normal Appetite, Other Symptoms Constitutional: Denies: Chills, Fever, Malaise, Night Sweats, Weakness, Fatigue, Weight Loss, Lethargy, Other Eyes: Denies: Pain, Vision change, Conjunctivae inflammation, Eyelid inflammation, Redness, Other ENT: Denies: Head Aches, Ear Pain, Dysphagia, Sinus Congestion, Post Nasal Drip, Sore Throat, Epistaxis, Other Symptoms Skin: Denies: Rash, Lesions, Jaundice, Bruising, Itching, Dry, Breakdown, Nail Changes, Other Pulmonary: Denies: Dyspnea, Cough, Pleuritic Chest Pain, Other Symptoms Cardiovascular: Denies: Chest Pain, Palpitations, Orthopnea, Paroxysmal Noc. Dyspnea, Edema, Lt Headedness, Other Symptoms Gastrointestinal: Reports: Abdominal Pain Genitourinary: Denies: Dysuria, Frequency, Incontinence, Hematuria, Retention, Other Symptoms Hematologic: Denies: Bruising, Bleeding Excessively, Petecchia, Purpura, Enlarged Lymph Nodes, Other Hematologic Endocrine: Denies: Polydipsia, Polyphagia, Polyuria, Heat Intolerance, Cold Intolerance, Other Endocrine Sx Musculoskeletal: Denies: Neck Pain, Back Pain, Shoulder Pain, Arm Pain, Hand Pain, Leg Pain, Foot Pain, Joint Pain, Muscle Pain, Spasms, Other Symptoms Neurological: Denies: Weakness, Numbness, Incoordination, Change in speech, Confusion, Seizures, Other Symptoms Psych: Denies: Mood Normal, Anxiety, Depression, Memory Issues, Thoughts of Self Harm, Anger, Thoughts of Harming Other, Other Psych Objective Physical Examination General Exam: Positive: Alert Eye Exam: Positive: PERRLA ENT Exam: Positive: Atraumatic, Mucous membr. moist/pink Neck Exam: Positive: Supple Chest Exam: Positive: Clear to auscultation Heart Exam: Positive: Irregular Rhythm Telemetry: Positive: No significant arrhythmia Abdomen Exam: Positive: Other (surgical wound) Extremity Exam: Positive: Other (no edema) Skin Exam: Positive: Nl turgor and temperature Neuro Exam: Positive: Normal Speech Psych Exam: Positive: Mood NL Assessment /Plan Problems (1) Colon cancer Problem Text: # HTN, HLD, a fib - Currently, heart rate is well controlled. - Hold off coumadin. He still has bloody discharge. - Continue metoprolol. Lisinopril 20 daily was increased to 20 BID, given SBP 1 40-150 persistently. Metoprolol was also increased to 75 daily from 50. - Continue statin, his home medication. 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 Pain is adequately controlled currently. # COPD - Continue symbicort and duoneb ATC # GI ppx - Continue protonix # Urination - Urology is following, putting the espinosa. Plan/VTE VTE Prophylaxis Ordered?: No (temporarily held due to surgical wound bleeding) VS, I&O, 24H, Fishbone Vital Signs/I&O Vital Signs Date Time Temp Pulse Resp B/P (MAP) Pulse Ox O2 Delivery O2 Flow Rate FiO2 02/18/19 10:00 97.7 87 12 158/88 (111) 95 02/16/19 17:38 2.0 I&O- Last 24 Hours up to 6 AM 02/18/19 06:00 Intake Total 3025 ml Output Total 910 ml Balance 2115 ml Laboratory Data 24H LABS Laboratory Tests 2 02/18/19 05:27: Nucleated Red Blood Cells % (auto) 0.0, Anion Gap 7L, Glomerular Filtration Rate > 60.0, Blood Urea Nitrogen 22H, Creatinine 1.02, Sodium Level 141, Potassium Level 4.6, Chloride Level 112H, Carbon Dioxide Level 22, Calcium Level 8.5L CBC/BMP Laboratory Tests 02/18/19 05:27 Red Blood Count 4.33, Mean Corpuscular Volume 90.1, Mean Corpuscular Hemoglobin 29.3, Mean Corpuscular Hemoglobin Concent 32.6, Red Cell Distribution Width 15.4 H, Calcium Level 8.5 L YARELI DODSON MD Feb 18, 2019 13:37
[2019-02-18 14:00] VITALS: BP 162/68
[2019-02-18] MEDS: ACETAMINOPHEN TAB 650MG DOSE (2X325MG) PO PRN (16:44)
[2019-02-18] MEDS ORDERED: MORPHINE 4 MG/ML 1ML VIAL/SYRINGE (J2270) IV PRN (18:00)
[2019-02-18] MEDS ORDERED: NORCO, ANEXSIA 5/325MG TABLET (HYDROcodone/ACETAMINOPHEN) PO PRN (18:00)
--- NOTE | 2019-02-18 21:33 | IPN ---
DATE: 02/18/2019 CHIEF COMPLAINT: The patient is status post colectomy and doing well without any significant other complaints at this time. Overall, his hematocrit has been stable and he has been out of bed for a couple of walks this morning. His vital signs show that he has been afebrile. Blood pressure is good. Urine output has been adequate, but he continues to have some serosanguineous drainage from his Kwasi-Barrientos drain. His urine appears nice and clear. Otherwise, his incisions are healing nicely without any erythema, drainage or discharge. IMPRESSION/PLAN: The patient is status post colectomy. At this point, we will start him on some clear liquids and we will see how he does with this, and we will progress his diet, as well as activity as tolerated over the next 24 to 48 hours. 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 From a standpoint of anticoagulation, he still has some bloody drainage and I would like to avoid restarting his anticoagulation for right now and we will see how he does over the next 24 to 48 hours. From a fluid standpoint, he seems to be doing well. We will hep lock his IV and his weight has definitely increased, so we may need to restart his diuretics, and at this point he is not seemingly overloaded at this time.
[2019-02-18 22:00] VITALS: BP 165/90
[2019-02-19] MEDS: IPRATROPIUM 0.5MG/ALBUTEROL 2.5MG INH SOL UD 3ML (DUONEB)(J7620) NEB SCH ×4 (01:57→20:00)
[2019-02-19] MEDS: ACETAMINOPHEN TAB 650MG DOSE (2X325MG) PO PRN ×3 (02:54→18:31)
--- NOTE | 2019-02-19 03:20 | IPNPDOC ---
Date Seen The patient was seen on 02/19/19. Progress Note Was notified by Nurse/telemetry nurse regarding patient's episodes of non sustained PVCs intermittently as was as noted Ed. Patient HD stable without clinical changes. Mg added to morning BMP to assess electrolytes. To f/u by daytime attending to see if persistent. JONN RILEY MD Feb 19, 2019 03:20
[2019-02-19 06:00] VITALS: BP 162/91
[2019-02-19 06:11] LABS: HEMATOCRIT 38.3 % (42.0-52.0); HEMOGLOBIN 12.8 g/dl (13.5-17.5); MEAN CORPUSCULAR HEMOGLOBIN 30.4 pg (27.0-33.0); MEAN CORPUSCULAR HGB CONC 33.4 g/dl (32.0-36.5); PLATELET COUNT, AUTOMATED 164 10^3/uL (150-450); RED BLOOD COUNT 4.21 10^6/uL (4.30-6.10); WHITE BLOOD COUNT 6.7 10^3/uL (4.0-10.0)
[2019-02-19 06:33] LABS: BLOOD UREA NITROGEN 19 MG/DL (7-18); CALCIUM LEVEL 8.4 MG/DL (8.8-10.2); CARBON DIOXIDE LEVEL 23 MEQ/L (21-32); CHLORIDE LEVEL 110 MEQ/L (98-107); CREATININE FOR GFR 1.01 MG/DL (0.70-1.30); GLOMERULAR FILTRATION RATE > 60.0 (>35); GLUCOSE, FASTING 89 MG/DL (70-100); MAGNESIUM LEVEL 1.8 MG/DL (1.8-2.4); SODIUM LEVEL 140 MEQ/L (136-145)
[2019-02-19] MEDS: SYMBICORT 160/4.5MCG INHALER 6GM INH SCH ×2 (07:21→20:40)
[2019-02-19] MEDS: PANTOPRAZOLE 40MG INJ (PROTONIX) (C9113) IV SCH (08:33)
[2019-02-19] MEDS: LISINOPRIL 20 MG TAB PO SCH ×2 (08:33→20:17)
[2019-02-19] MEDS: PRAVASTATIN 20 MG TAB PO SCH (08:33)
[2019-02-19] MEDS: ALVIMOPAN 12 MG CAPSULE (ENTEREG) PO SCH ×2 (08:33→20:16)
--- NOTE | 2019-02-19 09:55 | IPN ---
DATE: 02/16/2019 The patient overall has been doing quite well. He states pain has not been severe. He has been increasing his activity without complaints and overall has been moving around better. He has had some flatus without bowel movements is hungry at this time. His white count has been stable. His urine output has been adequate but seemed to have picked up this morning. Otherwise his Kwasi-Barrientos drain still is putting out some serosanguineous fluid. Abdomen is soft, nontender, nondistended. IMPRESSION AND PLAN: The patient seems to be making some good progress at this time. My recommendation is that we increase his diet to discontinue his Stewart and see how he does over the next 24 hours if he is doing well starting him on anticoagulation is reasonable tomorrow prior to discharge and discontinue the drain. I also feel that he can be restarted on his Lasix when medicine deems this is reasonable.
[2019-02-19] MEDS: METOPROLOL TARTRATE 100 MG TAB PO SCH ×2 (10:05→20:17)
--- NOTE | 2019-02-19 11:58 | IPNPDOC ---
Subjective Date Seen The patient was seen on 02/19/19. Subjective Chief Complaint/HPI Abdominal pain has improved. Still has pinkish discharge. Can ambulate well. Passing gas, but no BM yet. No fevers, chills, nausea, vomiting. General: Denies: ROS Unobtainable, Chills, Night Sweats, Fatigue, Malaise, Normal Appetite, Other Symptoms Constitutional: Denies: Chills, Fever, Malaise, Night Sweats, Weakness, Fatigue, Weight Loss, Lethargy, Other Eyes: Denies: Pain, Vision change, Conjunctivae inflammation, Eyelid inflammation, Redness, Other ENT: Denies: Head Aches, Ear Pain, Dysphagia, Sinus Congestion, Post Nasal Drip, Sore Throat, Epistaxis, Other Symptoms Skin: Denies: Rash, Lesions, Jaundice, Bruising, Itching, Dry, Breakdown, Nail Changes, Other Pulmonary: Denies: Dyspnea, Cough, Pleuritic Chest Pain, Other Symptoms Cardiovascular: Denies: Chest Pain, Palpitations, Orthopnea, Paroxysmal Noc. Dyspnea, Edema, Lt Headedness, Other Symptoms Gastrointestinal: Reports: Abdominal Pain Genitourinary: Denies: Dysuria, Frequency, Incontinence, Hematuria, Retention, Other Symptoms Hematologic: Denies: Bruising, Bleeding Excessively, Petecchia, Purpura, Enlarged Lymph Nodes, Other Hematologic Endocrine: Denies: Polydipsia, Polyphagia, Polyuria, Heat Intolerance, Cold Intolerance, Other Endocrine Sx Musculoskeletal: Denies: Neck Pain, Back Pain, Shoulder Pain, Arm Pain, Hand Pain, Leg Pain, Foot Pain, Joint Pain, Muscle Pain, Spasms, Other Symptoms Neurological: Denies: Weakness, Numbness, Incoordination, Change in speech, Confusion, Seizures, Other Symptoms Psych: Denies: Mood Normal, Anxiety, Depression, Memory Issues, Thoughts of Self Harm, Anger, Thoughts of Harming Other, Other Psych Objective Physical Examination General Exam: Positive: Alert Eye Exam: Positive: PERRLA ENT Exam: Positive: Atraumatic, Mucous membr. moist/pink Neck Exam: Positive: Supple Chest Exam: Positive: Clear to auscultation Heart Exam: Positive: Irregular Rhythm Telemetry: Positive: No significant arrhythmia Abdomen Exam: Positive: Other (surgical wound) Extremity Exam: Positive: Other (no edema) Skin Exam: Positive: Nl turgor and temperature Neuro Exam: Positive: Normal Speech Psych Exam: Positive: Mood NL Assessment /Plan Problems (1) Colon cancer Problem Text: # HTN, HLD, a fib - Currently, heart rate is well controlled. - Hold off coumadin. He still has bloody discharge. But starting heparin subcut BID. - Given elevated BP, increasing metoprolol to 100 BID. Lisinopril 20 daily was increased to 20 BID, given SBP 140-150 persistently. - Continue statin, his home medication. 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 Pain is adequately controlled currently. # COPD - Continue symbicort and duoneb ATC # GI ppx - Continue protonix # Urination - Urology is following, putting the espinosa. # DVT ppx - Starting heparin gtt, but will need to be back on full AC given a fib. Plan/VTE VTE Prophylaxis Ordered?: No (temporarily held due to surgical wound bleeding) VS, I&O, 24H, Fishbone Vital Signs/I&O Vital Signs Date Time Temp Pulse Resp B/P (MAP) Pulse Ox O2 Delivery O2 Flow Rate FiO2 02/19/19 10:05 97 162/91 02/19/19 06:00 97.4 12 96 02/16/19 17:38 2.0 I&O- Last 24 Hours up to 6 AM 02/19/19 06:00 Intake Total 1995 ml Output Total 1100 ml Balance 895 ml Laboratory Data 24H LABS Laboratory Tests 2 02/19/19 05:02: Nucleated Red Blood Cells % (auto) 0.0, Anion Gap 7L, Glomerular Filtration Rate > 60.0, Blood Urea Nitrogen 19H, Creatinine 1.01, Sodium Level 140, Potassium Level 4.0, Chloride Level 110H, Carbon Dioxide Level 23, Calcium Level 8.4L, Magnesium Level 1.8 CBC/BMP Laboratory Tests 02/19/19 05:02 Red Blood Count 4.21 L, Mean Corpuscular Volume 91.0, Mean Corpuscular Hemoglobin 30.4, Mean Corpuscular Hemoglobin Concent 33.4, Red Cell Distribution Width 14.9 H, Calcium Level 8.4 L YARELI DODSON MD Feb 19, 2019 11:58
[2019-02-19] MEDS: HEPARIN SOD (PORCINE) 5000 UNITS/ML VIAL SQ SCH ×2 (12:46→20:16)
[2019-02-19 14:00] VITALS: BP 165/75
[2019-02-19 22:00] VITALS: BP 153/71
[2019-02-20] MEDS: IPRATROPIUM 0.5MG/ALBUTEROL 2.5MG INH SOL UD 3ML (DUONEB)(J7620) NEB SCH ×3 (02:00→13:16)
[2019-02-20 06:00] VITALS: BP 174/70
[2019-02-20 06:11] LABS: HEMATOCRIT 36.2 % (42.0-52.0); HEMOGLOBIN 12.4 g/dl (13.5-17.5); MEAN CORPUSCULAR HGB CONC 34.3 g/dl (32.0-36.5); MEAN CORPUSCULAR VOLUME 87.7 fl (80.0-96.0); PLATELET COUNT, AUTOMATED 183 10^3/uL (150-450); RED BLOOD COUNT 4.13 10^6/uL (4.30-6.10); WHITE BLOOD COUNT 5.6 10^3/uL (4.0-10.0)
[2019-02-20 06:31] LABS: BLOOD UREA NITROGEN 17 MG/DL (7-18); CALCIUM LEVEL 8.3 MG/DL (8.8-10.2); CARBON DIOXIDE LEVEL 24 MEQ/L (21-32); CHLORIDE LEVEL 111 MEQ/L (98-107); CREATININE FOR GFR 0.94 MG/DL (0.70-1.30); GLOMERULAR FILTRATION RATE > 60.0 (>35); GLUCOSE, FASTING 87 MG/DL (70-100); POTASSIUM SERUM 3.7 MEQ/L (3.5-5.1); SODIUM LEVEL 142 MEQ/L (136-145)
[2019-02-20] MEDS: SYMBICORT 160/4.5MCG INHALER 6GM INH SCH (07:07)
[2019-02-20] MEDS: PRAVASTATIN 20 MG TAB PO SCH (08:16)
[2019-02-20] MEDS: ALVIMOPAN 12 MG CAPSULE (ENTEREG) PO SCH (08:16)
[2019-02-20 08:17] VITALS: BP 174/70
[2019-02-20] MEDS: METOPROLOL TARTRATE 100 MG TAB PO SCH (08:17)
[2019-02-20] MEDS: LISINOPRIL 20 MG TAB PO SCH (08:17)
[2019-02-20] MEDS: ACETAMINOPHEN TAB 650MG DOSE (2X325MG) PO PRN (08:17)
[2019-02-20] MEDS: HEPARIN SOD (PORCINE) 5000 UNITS/ML VIAL SQ SCH (08:17)
[2019-02-20] MEDS: PANTOPRAZOLE 40MG INJ (PROTONIX) (C9113) IV SCH (08:18)
[2019-02-20] MEDS ORDERED: FUROSEMIDE 40 MG TAB PO SCH (09:00)
--- NOTE | 2019-02-20 09:22 | IPN ---
DATE: 02/20/2019 The patient is status post colectomy. Overall seems to be making some good progress surgically. He still has been afebrile. His pain control has been well-controlled and overall kidney function seems to be improving nicely. He overall is about 5 liters up, however. His abdomen is soft, nondistended, nontender. He has some ecchymosis along his incisions but otherwise this seems to be healing well. Kwasi-Barrientos drain still has some serosanguineous but no bloody discharge and otherwise still has some persistent output at this point. IMPRESSION AND PLAN: Patient is probably a little fluid overloaded at this time or at least his weight is up. He is normally on some Lasix and thus I will restart his Lasix this morning, that may be contributing to his high blood pressure as well. Will see if that makes a difference with his blood pressure issues and see how he does during the day today. If his blood pressure calms down nicely over the morning and then we may be able to discharge him later on today or possibly tomorrow depending on how he is doing. But otherwise, from a surgical standpoint he seems to be making some good progress. Pathology is not back yet and we are waiting for the final results.
[2019-02-20 10:40] VITALS: BP 142/64
[2019-02-20] MEDS ORDERED: LISI-538 PO (14:00)
[2019-02-20] MEDS ORDERED: LOPR1TAB7 PO (14:00)
--- NOTE | 2019-02-20 14:04 | IPNPDOC ---
Date Seen The patient was seen on 02/20/19. 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 Patient is evaluated at bedside. His is present. Patient denies chest pain, shortness of breath, fevers, night sweats, chills. The drain remains in place, but patient states that it is supposed to be removed today. OBJECTIVE PHYSICAL EXAMINATION: VITAL SIGNS: Please see below. GENERAL: Well nourished, well developed elderly male, alert and conversant, hard of hearing, answers questions appropriately, no acute distress. HEENT: Atraumatic, normocephalic, PERRL, EOMI, oral mucosa appears pink and moist, nasal septum appears midline, nares are patent. CARDIOVASCULAR: Irregularly irregular heart rate and rhythm, variable S1 and S2, no murmur, rub, click. RESPIRATORY: Clear to auscultation bilaterally, adequate inspiratory and expiratory airway excursion, symmetric airway entry, no focal consolidation, no wheeze, rhonchi, crackles. ABDOMINAL: Drainage tubing noted in LLQ with receptacle containing blood-tinged fluid, dressing with strike-through. EXTREMITIES: No clubbing, no cyanosis, no peripheral edema, peripheral pulses equal and symmetrical, +2. NEUROLOGICAL: CN II-XII grossly intact. PSYCHOLOGICAL: Mood and affect appropriate. LABORATORY DATA, IMAGING STUDIES, MICROBIOLOGY: Please see below. DVT prophylaxis ordered?: Resumed Warfarin 2mg PO daily; previously on Heparin 5,000 units SQ Q12H. 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 PROBLEMS: 1. Sigmoid colon cancer s/p laparoscopic sigmoid colectomy with coloproctostomy General surgery is primary Follow up scheduled with general surgery on 02/26/2019 at 2pm for staple removal and follow up on 03/07/2019 at 9am Patient may eat as tolerated and perform activities as tolerated Patient may shower and replace the dressing around the incision as needed Patient being discharged today Pain management per general surgery recommendations 2. Uncontrolled HTN C/W Lisinopril 20mg PO BID C/W Metoprolol 100mg PO BID C/W Furosemide 40mg PO daily Recommend close out-patient follow-up with PCP 3. Paroxysmal atrial fibrillation Restart Warfarin 2mg PO daily INR check 1-2 days prior to PCP follow-up DISPOSITION: Discharge home. I saw and evaluated the patient. I agree with the findings and plan of care as documented in the resident's note VS, I&O, 24H, Fishbone Vital Signs/I&O Vital Signs Date Time Temp Pulse Resp B/P (MAP) Pulse Ox O2 Delivery O2 Flow Rate FiO2 02/20/19 10:40 78 142/64 (90) 02/20/19 06:00 97.5 18 95 02/16/19 17:38 2.0 I&O- Last 24 Hours up to 6 AM 02/20/19 06:00 Intake Total 1520 ml Output Total 2110 ml Balance -590 ml Laboratory Data 24H LABS Laboratory Tests 2 02/20/19 05:36: Nucleated Red Blood Cells % (auto) 0.0, Anion Gap 7L, Glomerular Filtration Rate > 60.0, Blood Urea Nitrogen 17, Creatinine 0.94, Sodium Level 142, Potassium Level 3.7, Chloride Level 111H, Carbon Dioxide Level 24, Calcium Level 8.3L CBC/BMP Laboratory Tests 02/20/19 05:36 Red Blood Count 4.13 L, Mean Corpuscular Volume 87.7, Mean Corpuscular Hemoglobin 30.0, Mean Corpuscular Hemoglobin Concent 34.3, Red Cell Distribution Width 14.7 H, Calcium Level 8.3 L RAJINDER REYNOLDS DO Feb 20, 2019 14:04 LONG ELLIOTT MD Feb 24, 2019 16:36
[2019-02-20] MEDS ORDERED: WARFARIN SOD 2 MG TAB PO SCH (17:00)
[2019-03-12] MEDS ORDERED: METO50TA7 PO (09:59)
[2019-03-12] MEDS ORDERED: LISI-538 PO (10:00)
[2019-03-14] MEDS ORDERED: CAPE1TAB2 PO ×2 (10:17→11:18)
--- NOTE | 2019-03-18 14:38 | DSES ---
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 PROCEDURES PERFORMED: Laparoscopic sigmoid colectomy with coloproctostomy on 02/16. BRIEF HISTORY OF PRESENT ILLNESS: Patient is an 83-year-old male who presents with rectal bleeding and crampy abdominal pain and partial obstructive symptoms with some weight loss and essentially presented with a lesion in the sigmoid colon and was scheduled for a laparoscopic sigmoid colectomy. ASSOCIATED DIAGNOSES/PAST MEDICAL HISTORY: Significant for: 1. History of hypertension. 2. History of hypercholesterolemia. 3. Coronary artery disease. 4. History of kidney disease. 5. History of lung disease 6. History of pacemaker implantation. 7. History of benign prostatic hypertrophy (BPH). 8. History of cataract surgery. BRIEF HOSPITAL COURSE SUMMARY: The patient was admitted with the above diagnosis, underwent a laparoscopic sigmoid colectomy with a coloproctostomy, tolerated the procedure well. Did quite nicely thereafter. Had some minimal pain that improved on a daily basis and essentially, his diet was gradually progressed over the ensuing 48 hours up to a regular diet prior to discharge. He was eventually discharged home on 02/20/2019, tolerating a regular diet, had good pain control with minimal oral pain medications, i.e. he was given Tylenol for discomfort as needed and was encouraged to continue on his usual medications, which include Symbicort, Lasix, lovastatin, Coumadin. He did have his lisinopril and metoprolol stopped prior to discharge, but was instructed to follow up with his primary care provider in the next week to discuss his medications and whether they needed to be restarted or not. In addition, he is to follow up in my office for in one week for staple removal and with myself in two weeks. At that point, we will discuss a referral on to oncology for additional treatment.
== END 2019-02-20 14:10 | disposition home or self-care (01) | DRG 331 ==
LOC: M OR 05:37 → M MSPAV 12:46
PROVIDERS: ADMIT Surgery; ATTEND Surgery
PROC: 0TJB8ZZ Inspection of Bladder, Via Natural or Artificial Opening Endoscopic (ICD-10-PCS; 2019-02-16)
PROC: 0DBN4ZZ Excision of Sigmoid Colon, Percutaneous Endoscopic Approach (ICD-10-PCS; principal; 2019-02-16 07:30)
DX: C18.7 Malignant neoplasm of sigmoid colon (principal); I10 Essential (primary) hypertension; E78.00 Pure hypercholesterolemia, unspecified; I25.10 Atherosclerotic heart disease of native coronary artery without angina pectoris; I48.0 Paroxysmal atrial fibrillation; J44.9 Chronic obstructive pulmonary disease, unspecified; N18.9 Chronic kidney disease, unspecified; N40.0 Benign prostatic hyperplasia without lower urinary tract symptoms; Z95.0 Presence of cardiac pacemaker; Z98.49 Cataract extraction status, unspecified eye; Z79.01 Long term (current) use of anticoagulants; Z79.899 Other long term (current) drug therapy; Z87.891 Personal history of nicotine dependence

== ENCOUNTER → 2019-03-19 | Outpatient (CLI) | payer MEDICARE ==
[~2019-03-19] MED LIST changes: +CAPE1TAB2 PO; +LOPR1TAB7 PO
--- NOTE | 2019-03-20 08:59 | REP ---
Radionuclide ventriculogram: History: Colon carcinoma. Baseline study prior to chemotherapy. Comparison CT angio of the chest imaging August 13, 2018. Technique: 26.2 mCi of technetium 99m labeled RBCs (UltraTag method) was administered and radionuclide ventriculography is acquired in the left anterior oblique projection. Gated blood pool ventriculography is reviewed in CINE mode. Semi-automated segmental and global left ventricular ejection fraction was generated. Findings: There is moderate to marked four-chamber cardiomegaly with significant enlargement of the right and left atrium as seen on CT study. CT study shows the right ventricle enlarged as well as the left. Semi-automated calculated left ventricular ejection fraction is 21%. No regional wall motion abnormality is seen on CINE review. Impression: Moderate to marked four-chamber cardiac enlargement. Decreased left ventricular ejection fraction, 21%. No wall motion abnormality seen. Electronically Signed by Nathan Terry MD 03/20/2019 04:43 P
== END ==
LOC: M RAD 12:50
PROVIDERS: ATTEND Internal Medicine
DX: C18.9 Malignant neoplasm of colon, unspecified (principal)
CPT/HCPCS: 78472; A9560

== ENCOUNTER → 2019-05-30 | Outpatient (CLI) | payer MEDICARE ==
[~2019-05-30] MED LIST changes: +HYDR2.5C21 TOP; +HYDR5CR TOP; +IPRA3SP; +ISOVUE-370 76% 100ML VIAL (Q9967) As Ordered ONE; +MONT10TA2 PO; +VITA250T30 PO; +XELO1TAB PO
--- NOTE | 2019-05-30 12:25 | REP ---
CT of the chest with IV contrast, CT pulmonary angiography: Comparison is 12 11/01/2017. There are no emboli in the pulmonary trunk or central pulmonary arteries. There are no emboli in the pulmonary lobe or segment branches. There are no infiltrates or pleural effusions. There are calcified granulomas in the right lower lobe, spleen, unchanged. There is right hilar lymph node enlargement measuring up to 2.2 the centimeters short axis. This measured 1.2 cm previously. There is no adenopathy in the left hilus or mediastinum. There is no axillary adenopathy. The ascending thoracic aorta is mildly dilated measuring up to 41 mm transversely. This is similar to the prior study. Cardiac size is enlarged, unchanged. There is no pericardial effusion. There is bilateral calcific pleural plaque. This is unchanged. The upper abdomen. There are multiple gallbladder calculi. This is unchanged. Impression: There are no pulmonary emboli. There is right hilar lymph node enlargement as described. There are calcified granulomas. Cholelithiasis. Mildly dilated ascending aorta. Electronically Signed by Paul Mariscal MD 05/30/2019 12:17 P
== END ==
LOC: M RAD 10:43
PROVIDERS: ATTEND Nurse Practitioner Family
DX: R06.00 Dyspnea, unspecified (principal); Z86.711 Personal history of pulmonary embolism
CPT/HCPCS: 36415; 71275; 80053; 82378; 85027; G0463; Q9967

== ENCOUNTER → 2019-08-17 | Outpatient (REF) | payer MEDICARE ==
[~2019-08-17] MED LIST changes: -ISOVUE-370 76% 100ML VIAL (Q9967) As Ordered ONE; -OMEP40CA2 PO; +OMEP40CA97 PO
[2019-08-17 13:04] LABS: INR 4.49; PROTHROMBIN TIME 42.9 SECONDS (11.8-14.0)
== END ==
LOC: M LAB REF 12:25
PROVIDERS: ATTEND Nurse Practitioner Adult Health
DX: I48.20 Chronic atrial fibrillation, unspecified (principal); Z79.01 Long term (current) use of anticoagulants

== ENCOUNTER 2019-10-02 12:14 | Day surgery (SDC) | payer MEDICARE ==
[~2019-10-02] VITALS: Ht 177.8 cm; Wt 73.2 kg
[~2019-10-02 12:14] MED LIST changes: +LR 1,000 ML IV ONE; +ceFAZolin SOD 1 GM in D5W MINI-BAG PLUS 50 ML IV ONE
[2019-10-02] MEDS ORDERED: LIDOCAINE 2% INJ 100 MG/5 ML SDV (FOR ANES.) As Ordered ONE (12:51)
[2019-10-02] MEDS ORDERED: propofoL 500 MG/50 ML VIAL As Ordered ONE (12:51)
[2019-10-02] MEDS ORDERED: ONDANSETRON 4MG/2ML VIAL (J2405) As Ordered ONE (12:54)
[2019-10-02 13:15] LABS: INR 2.31; PROTHROMBIN TIME 25.2 SECONDS (11.8-14.0)
[2019-10-02] MEDS ORDERED: fentaNYL 100 MCG/2 ML INJECTION (J3010) As Ordered ONE (13:30)
[2019-10-02] MEDS ORDERED: LIDOCAINE 1% SDV INJ 30 ML VIAL As Ordered ONE (13:34)
[2019-10-02] MEDS ORDERED: VANCOMYCIN 1000 MG/20 ML VIAL (J3370) As Ordered ONE (13:34)
[2019-10-02 15:55] VITALS: BP 138/68
--- NOTE | 2019-10-02 16:18 | RO ---
DATE OF OPERATION: 10/02/2019 PREOPERATIVE DIAGNOSIS: Pacemaker battery depletion. POSTOPERATIVE DIAGNOSIS: Pacemaker battery depletion. PROCEDURE: Explantation of old single-chamber pacemaker pulse generator ([employer]) and implantation of new single-chamber pacemaker pulse generator. SURGEON: Damaso Morley MD CAR BRACER: None. ANESTHESIA: Lidocaine 1% local/monitored anesthetic care. FINDINGS: Pacemaker battery depletion. SPECIMENS: Old [employer] pacemaker pulse generator. ESTIMATED BLOOD LOSS: Less than 5 mL. No blood products replaced. No drains. No complications. PROCEDURE DESCRIPTION: The patient was prepped and draped over the left pectoral region. 3M Ioban film was applied. Lidocaine 1% was used for local anesthetic. An incision was made over the existing incision using a PEAK PlasmaBlade. The PEAK PlasmaBlade was used to get part way through the incision line down to the level of the pacemaker pulse generator. The anterior capsule overlying the pacemaker pulse generator was then cut through using fine scissor dissection. The tie down stitch holding the pacemaker pulse generator was then cut to free up the pacemaker pulse generator was then removed from the pocket. The hex wrench would not seat properly to be able to loosen the setscrew. I then removed the plastic grommet and tried to gain access to the tie down screw and even with the new hex wrench was unable to loosen the setscrew. Next, I took the tip of a #22 needle and placed it in the socket hole of the tie down screw and was able to remove some debris from inside it. I was then able to place the hex wrench into the socket of the tie down screw and was able to loosen the setscrew. I was able to remove the setscrew entirely. The existing ventricular lead terminal pin was then removed from header of the existing pacemaker pulse generator. The lead was tested. It was found to be satisfactory using the pulse analyzer. The terminal pin of the existing pacemaker lead was then placed into the new pacemaker header and was secured by tightening the setscrew with a hex screwdriver. I then took a TYRX antimicrobial envelope and cut it into six pieces which were placed into the floor of the pacemaker pocket. I also expanded using blunt dissection of the caudal aspect of the pacemaker pocket to accommodate the larger size of the new pacemaker pulse generator. The new pacemaker pulse generator was then placed into the pacemaker pocket with writing side facing upward. The deep layer was then closed using individual sutures consisting of #2-0 Vicryl. A more superficial layer was closed using individual sutures consisting of #3-0 Vicryl. I then used a #4-0 Biosyn suture to approximate the skin at the subcuticular layer by tying the starting stitch deep and by pulling the end stitch up through the skin at the other end and then cut the end of the stitch. Next, Prineo dressing was applied along with the supplied Dermabond. The patient tolerated the procedure well without any immediate complications. The new pacemaker pulse generator implanted was a [employer] with model number DT4076 with serial number [id number]. The pacemaker pulse generator that was explanted was a [employer] model 5626 with serial number [id number] originally implanted by Dr. Morley 08/25/2007. The existing right ventricle lead was a [employer] model 1388T with serial number [id number] originally implanted 03/12/1998. Device pace testing in the operating room through the pacemaker pulse generator showed the capture threshold to be 1.0 volts at 0.4 ms with sensing of 8.6 mV and lead impedance of 360 ohms.
== END 2019-10-02 16:14 | disposition home or self-care (01) ==
LOC: M SDC 12:14
PROVIDERS: ATTEND Internal Medicine Cardiovascular Disease
DX: Z45.010 Encounter for checking and testing of cardiac pacemaker pulse generator [battery] (principal); I48.21 Permanent atrial fibrillation; I11.0 Hypertensive heart disease with heart failure; I50.32 Chronic diastolic (congestive) heart failure; E78.00 Pure hypercholesterolemia, unspecified; K21.9 Gastro-esophageal reflux disease without esophagitis; I77.810 Thoracic aortic ectasia; I08.0 Rheumatic disorders of both mitral and aortic valves; I49.5 Sick sinus syndrome; J44.9 Chronic obstructive pulmonary disease, unspecified; Z85.038 Personal history of other malignant neoplasm of large intestine; Z92.21 Personal history of antineoplastic chemotherapy; Z79.899 Other long term (current) drug therapy; Z79.01 Long term (current) use of anticoagulants
CPT/HCPCS: 33227; 36415; 85610; C1713; J0690; J2405; J3010

== ENCOUNTER → 2020-01-11 | Outpatient (CLI) | payer MEDICARE ==
[~2020-01-11] MED LIST changes: -LR 1,000 ML IV ONE; -MONT10TA2 PO; +MONT10TA4 PO; -ceFAZolin SOD 1 GM in D5W MINI-BAG PLUS 50 ML IV ONE
[2020-01-11 10:42] LABS: EOS # 0.1 10^3/uL (0.0-0.5); EOS % 2.1 % (0.0-3.0); HEMATOCRIT 40.5 % (42.0-52.0); HEMOGLOBIN 13.5 g/dl (13.5-17.5); LYMPH # 1.3 10^3/uL (1.5-5.0); LYMPH % 32.8 % (24.0-44.0); MEAN CORPUSCULAR HEMOGLOBIN 30.5 pg (27.0-33.0); MEAN CORPUSCULAR HGB CONC 33.3 g/dl (32.0-36.5); MEAN CORPUSCULAR VOLUME 91.4 fl (80.0-96.0); MONO # 0.7 10^3/uL (0.0-0.8); MONO % 17.7 % (0.0-5.0); NEUTROPHILS # 1.8 10^3/uL (1.5-8.5); NEUTROPHILS % 46.1 % (36.0-66.0); PLATELET COUNT, AUTOMATED 125 10^3/uL (150-450); RED BLOOD COUNT 4.43 10^6/uL (4.30-6.10); WHITE BLOOD COUNT 3.9 10^3/uL (4.0-10.0)
[2020-01-11 11:05] LABS: ALBUMIN 3.2 GM/DL (3.2-5.2); BILIRUBIN,TOTAL 0.8 MG/DL (0.2-1.0); CALCIUM LEVEL 8.9 MG/DL (8.8-10.2); CREATININE FOR GFR 1.33 MG/DL (0.70-1.30); GLOMERULAR FILTRATION RATE 54.5 (>35); POTASSIUM SERUM 4.1 MEQ/L (3.5-5.1); TOTAL PROTEIN 6.7 GM/DL (6.4-8.2)
== END ==
LOC: M LAB 09:58
PROVIDERS: ATTEND Internal Medicine Hematology & Oncology
DX: C18.7 Malignant neoplasm of sigmoid colon (principal)

== ENCOUNTER → 2020-01-16 | Outpatient (CLI) | payer MEDICARE ==
[~2020-01-16] MED LIST changes: +CARV6.25 PO; +GASTROGRAFIN SOLUTION 30ML (Q9963) As Ordered ONE; +ISOVUE-370 76% 100ML VIAL As Ordered ONE
--- NOTE | 2020-01-24 17:18 | REP ---
CT ABDOMEN AND PELVIS WITH IV AND ORAL CONTRAST: REPEAT DICTATION. HISTORY: Restaging colon carcinoma. The study is acquired on January 16, 2020 and I am asked to re-dictate it review on January 24, 2020. Comparison CT study, February 09, 2019. CT CONTRAST DOSE: 100 mL of intravenous Isovue 370. 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 The heart is markedly enlarged with a unipolar pacemaker in place. On axial CT images, the lung bases are essentially clear. Axial CT images demonstrate marked right atrial and right ventricular dilation. There is reflux of contrast-opacified blood into the hepatic veins and intrahepatic vena cava. These findings suggest right heart failure. No focal hepatic mass lesion is observed. There is granular calcific material in the lumen of the gallbladder consistent with gallstones. This is unchanged. No pancreatic abnormality is seen. There are granulomatous calcifications in the spleen. No adrenal lesion is seen. The kidneys enhance symmetrically and are morphologically intact. No retroperitoneal mass or adenopathy is observed. Small and large bowel loops are unremarkable in the abdomen. No pelvic mass or adenopathy is observed. A suture line is visible in the rectosigmoid colon status post left partial colectomy. Prostate is enlarged. Urinary bladder is unremarkable. No abdominal wall defect is seen. No bony destructive lesion is seen. There are degenerative changes in the lumbar spine as before. IMPRESSION: No evidence of intra-abdominal metastasis. Cholelithiasis. Prior partial left colectomy. Evidence of right heart failure and cardiomegaly. Electronically Signed by Nathan Terry MD 01/25/2020 08:35 A
== END ==
LOC: M RAD 11:31
PROVIDERS: ATTEND Internal Medicine Hematology & Oncology
DX: C18.7 Malignant neoplasm of sigmoid colon (principal); Z95.0 Presence of cardiac pacemaker; Z90.49 Acquired absence of other specified parts of digestive tract; M51.36 Other intervertebral disc degeneration, lumbar region; K80.20 Calculus of gallbladder without cholecystitis without obstruction
CPT/HCPCS: 74177; Q9963; Q9967

== ENCOUNTER → 2020-02-25 | Outpatient (CLI) | payer MEDICARE ==
[~2020-02-25] MED LIST changes: +D 101000 PO; -GASTROGRAFIN SOLUTION 30ML (Q9963) As Ordered ONE; -ISOVUE-370 76% 100ML VIAL As Ordered ONE; +PROAAER10 INH; +VITA100T14 PO
== END ==
LOC: M LABSMTC 11:04
PROVIDERS: ATTEND Anesthesiology
DX: Z03.818 Encounter for observation for suspected exposure to other biological agents ruled out (principal)
CPT/HCPCS: C9803; U0003

== ENCOUNTER 2020-02-28 08:02 | Day surgery (SDC) | payer MEDICARE ==
[~2020-02-28] VITALS: Ht 180.3 cm; Wt 71.2 kg
[~2020-02-28 08:02] MED LIST changes: +NS 1,000 ML IV ONE
[2020-02-28] MEDS ORDERED: propofoL 200 MG/20 ML VIAL As Ordered ONE (09:23)
--- NOTE | 2020-02-28 09:37 | ROOR ---
Patient Name: Fausto Nunez Procedure Date: 02/28/2020 9:17 AM Date of : 1935 Age: 84 Room: [facility] Gender: Male Note Status: Finalized Procedure: Colonoscopy Indications: High risk colon cancer surveillance: Personal history of colon cancer Providers: Stephen Caanles Jr, MD Referring MD: Rae Vital NP Requesting Provider: Medicines: Propofol per Anesthesia Complications: No immediate complications. Procedure: Pre-Anesthesia Assessment: - Prior to the procedure, a History and Physical was performed, and patient medications and allergies were reviewed. The patient is competent. The risks and benefits of the procedure and the sedation options and risks were discussed with the patient. All questions were answered and informed consent was obtained. Patient identification and proposed procedure were verified by the physician and the nurse in the pre-procedure area and in the procedure room. Mental Status Examination: alert and oriented. Airway Examination: normal oropharyngeal airway and neck mobility. Respiratory Examination: clear to auscultation. CV Examination: normal. ASA Grade Assessment: II - A patient with mild systemic disease. After reviewing the risks and benefits, the patient was deemed in satisfactory condition to undergo the procedure. The anesthesia plan was to use moderate sedation / analgesia (conscious sedation). Immediately prior to administration of medications, the patient was re-assessed for adequacy to receive sedatives. The heart rate, respiratory rate, oxygen saturations, blood pressure, adequacy of pulmonary ventilation, and response to care were monitored throughout the procedure. The physical status of the patient was re-assessed after the procedure. The Colonoscope was introduced through the anus and advanced to the cecum, identified by appendiceal orifice and ileocecal valve. The colonoscopy was performed without difficulty. The patient tolerated the procedure well. The quality of the bowel preparation was adequate. Findings: The rectum, descending colon, transverse colon, ascending colon, cecum, appendiceal orifice, ileocecal valve and anastomosis appeared normal. Non-bleeding external and internal hemorrhoids were found during endoscopy. The hemorrhoids were Grade II (internal hemorrhoids that prolapse but reduce spontaneously) and Grade III (internal hemorrhoids that prolapse but require manual reduction). Impression: - The rectum, descending colon, transverse colon, ascending colon, cecum, appendiceal orifice, ileocecal valve and colonic anastomosis are normal. - Non-bleeding external and internal hemorrhoids. - No specimens collected. Recommendation: - Repeat colonoscopy in 5 years for screening purposes. Stephen Canales MD Stephen Canales Jr, MD 02/28/2020 9:37:07 AM Electronically signed by Stephen Canales Jr, MD Number of Addenda: 0 Note Initiated On: 02/28/2020 9:17 AM Estimated Blood Loss: Estimated blood loss: none.
[2020-02-28 10:00] VITALS: BP 173/74
== END 2020-02-28 10:10 | disposition home or self-care (01) ==
LOC: M OPP 08:02
PROVIDERS: ATTEND Surgery
DX: Z85.038 Personal history of other malignant neoplasm of large intestine (principal); K64.2 Third degree hemorrhoids; Z08 Encounter for follow-up examination after completed treatment for malignant neoplasm; I10 Essential (primary) hypertension; J44.9 Chronic obstructive pulmonary disease, unspecified; I48.91 Unspecified atrial fibrillation; Z79.899 Other long term (current) drug therapy; Z95.0 Presence of cardiac pacemaker; Z87.891 Personal history of nicotine dependence

== ENCOUNTER → 2020-09-18 | Outpatient (CLI) | payer MEDICARE ==
[~2020-09-18] MED LIST changes: -MONT10TA4 PO; +MONT5TAB2 PO; -NS 1,000 ML IV ONE; +SING4CHW9 PO
== END ==
LOC: M LABSMTC 13:26
PROVIDERS: ATTEND Anesthesiology
DX: Z01.812 Encounter for preprocedural laboratory examination (principal); Z20.822 Contact with and (suspected) exposure to COVID-19

== ENCOUNTER 2020-09-19 12:26 | Day surgery (SDC) | payer MEDICARE ==
[~2020-09-19] VITALS: Ht 175.3 cm; Wt 72.1 kg
[~2020-09-19 12:26] MED LIST changes: +LR 1,000 ML IV ONE; +ceFAZolin SOD 1 GM in D5W MINI-BAG PLUS 50 ML IV ONE
[2020-09-19 13:16] LABS: HEMATOCRIT 43.8 % (42.0-52.0); MEAN CORPUSCULAR HEMOGLOBIN 29.9 pg (27.0-33.0); MEAN CORPUSCULAR VOLUME 93.6 fl (80.0-96.0); PLATELET COUNT, AUTOMATED 113 10^3/uL (150-450); RED BLOOD COUNT 4.68 10^6/uL (4.30-6.10); WHITE BLOOD COUNT 4.3 10^3/uL (4.0-10.0)
[2020-09-19 13:31] LABS: INR 1.78; PROTHROMBIN TIME 21.1 SECONDS (12.5-14.3)
[2020-09-19] MEDS ORDERED: propofoL 200 MG/20 ML VIAL As Ordered ONE ×2 (13:35→14:53)
[2020-09-19] MEDS ORDERED: LIDOCAINE 2% 100MG/5ML SDV (FOR ANES.) As Ordered ONE (13:35)
[2020-09-19] MEDS ORDERED: MIDAZOLAM INJ 2MG/2ML VIAL (J2250 PER 1MG) As Ordered ONE (13:36)
[2020-09-19] MEDS ORDERED: fentaNYL 100 MCG/2 ML INJECTION (J3010) As Ordered ONE (13:36)
[2020-09-19 13:49] LABS: BLOOD UREA NITROGEN 19 MG/DL (7-18); CALCIUM LEVEL 8.6 MG/DL (8.8-10.2); CARBON DIOXIDE LEVEL 29 MEQ/L (21-32); CHLORIDE LEVEL 109 MEQ/L (98-107); CREATININE FOR GFR 1.12 MG/DL (0.70-1.30); GLOMERULAR FILTRATION RATE > 60.0 (>35); GLUCOSE, FASTING 93 MG/DL (70-100); POTASSIUM SERUM 3.7 MEQ/L (3.5-5.1); SODIUM LEVEL 141 MEQ/L (136-145)
[2020-09-19] MEDS ORDERED: LIDOCAINE 1% SDV 30ML VIAL As Ordered ONE (13:56)
[2020-09-19] MEDS ORDERED: VANCOMYCIN 1000MG/20ML VIAL As Ordered ONE (13:57)
[2020-09-19] MEDS ORDERED: NEOSPORIN TOP OINT 15GM As Ordered ONE (13:57)
[2020-09-19] MEDS ORDERED: ISOVUE-300 61% 50ML VIAL As Ordered ONE (14:02)
--- NOTE | 2020-09-19 16:41 | REP ---
INDICATION: POST OP EVAL IN PACU COMPARISON: None. TECHNIQUE: Portable AP view of the chest FINDINGS: Marked cardiomegaly appears increased from prior examination. Pacemaker identified with leads overlying the ventricle. Lung ellis demonstrate diffuse chronic interstitial changes. No consolidation, effusion, or pneumothorax. Skeletal structures are intact. IMPRESSION: Cardiomegaly. Status post pacemaker. <Electronically signed by Matthew Blunt > 09/19/20 [id number]
--- NOTE | 2020-09-19 16:42 | REP ---
INDICATION: PACEMAKER LEAD REPLACEMENT WITH POSS. IMPLANT NEW PACEMAKER. COMPARISON: Chest radiograph the same day. TECHNIQUE: Single C-arm view chest performed. FINDINGS: Left pacemaker is noted. Two leads are visualized, there distal ends appear to be in the region of the right ventricle. IMPRESSION: 6 minutes 7 seconds fluoroscopy time utilized. <Electronically signed by Paul Vaca > 09/19/20 [id number]
[2020-09-19 17:30] VITALS: BP 176/77
--- NOTE | 2020-09-19 17:39 | RO ---
OPERATIVE NOTE DATE OF OPERATION: 09/19/2020 PREOPERATIVE DIAGNOSIS: Center pacemaker lead malfunction (pacemaker lead break). POSTOPERATIVE DIAGNOSIS: Center pacemaker lead malfunction (pacemaker lead break). FINDINGS: Center pacemaker lead malfunction (pacemaker lead break). PROCEDURE PERFORMED: Implantation of a new ventricular pacemaker lead. SURGEON: Damaso Morley M.D. NET MAKER: None. ANESTHESIA: Lidocaine 1% local/monitored anesthetic care. SPECIMENS: None. ESTIMATED BLOOD LOSS: Less than 5 mL. BLOOD PRODUCTS REPLACED: None. DRAINS: None. COMPLICATIONS: None. PROCEDURE DESCRIPTION: Prior to draping the patient, a left subclavian venogram was performed using 15 mL of a mixture of contrast in a 5:1 ratio, contrast to saline to show whether or not the left subclavian vein was patent. The left subclavian vein was patent. Next, the patient was prepped and draped over the left pectoral region. Lidocaine 1% was used for local anesthetic. I was able to get into the left subclavian vein/axillary vein using a micropuncture needle by percutaneous technique using 20 mL of contrast of the same 5:1 mixture to obtain venous access in real time with the venogram. This was then guidewire exchanged for the guidewire that came with one of the 8 [place] sheaths. Next, incision approximately 2-1/2 inches in length was made 1 cm below the skin entry site of the guidewire and approximately parallel to the clavicle. Using the PEAK PlasmaBlade, I was able to get down to the prepectoral fascia. I then dissected with the PEAK PlasmaBlade in a caudal direction towards the existing pacemaker can. I freed up the existing ventricular pacemaker leak with the PEAK PlasmaBlade up to its tie-down sleeve. I was able to pull the existing pacemaker pulse generator out of the existing pocket. It was then removed temporarily and wiped down with 100% alcohol to clean it up. It was put aside temporarily. Next, the guidewire was pulled through the skin incision site. An 8 [place] sheath introducer was placed over the guidewire and this was used for vein access for the new right ventricular lead. The new right ventricular lead was placed under fluoroscopic guidance into a right ventricular apex position. The first position I sampled was not satisfactory and therefore, I had to reposition it towards the true right ventricular apex. It was secured with a total of eight turns. This position was found to be electrically and anatomically satisfactory and no diaphragm stimulation could be palpated inside with 10 volts high output pacing. The new ventricular lead was secured to the pectoral muscle using a tie-down sleeve using three individual sutures consisting of 0 Ethibond. The existing right ventricular lead of the original pacemaker system was capped with a recap reference #[id number], lot #[id number]. It was secured using an 0 Ethibond suture. The excess lead material of the existing ventricular lead was placed into the existing pacemaker pocket. I then took medium sized TYRX antimicrobial envelope and cut it into four pieces and placed it into the pocket. I then used the existing pacemaker pulse generator and hooked it up to the terminal pin of the new pacemaker wire. It was secured by tightening the set screw. The excess lead material was then coiled underneath the pacemaker pulse generator and placed with the pulse generator into the pacemaker pocket. It was secured to the pectoral muscle with an 0 Ethibond suture. The deep layer was closed using individual sutures consisting of 2-0 Vicryl. A few additional 3-0 Vicryl sutures were used to secure the more superficial layer. The skin was then closed using robert. This was followed by application of Bactroban ointment, Telfa, and then a bio-occlusive dressing. The patient received a left arm sling as well. The patient tolerated the procedure well without any immediate complications. The new pacemaker lead implanted was a [employer] Tendril MRI model SFF1121U, 58 cm, with serial #[id number]. Testing of the new pacemaker lead through the pulse analyzer showed a capture threshold of 0.6 volts and 0.4 milliseconds with R wave amplitude of 4.8 millivolts and lead impedance of 513 ohms.
--- NOTE | 2020-09-20 11:23 | ECGEPIP ---
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
--- NOTE | 2020-09-20 11:30 | ECGEPIP ---
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
== END 2020-09-19 17:30 | disposition home or self-care (01) ==
LOC: M SDC 12:26
PROVIDERS: ATTEND Internal Medicine Cardiovascular Disease
DX: T82.119A Breakdown (mechanical) of unspecified cardiac electronic device, initial encounter (principal); I48.21 Permanent atrial fibrillation; Z95.0 Presence of cardiac pacemaker; I50.812 Chronic right heart failure; I11.0 Hypertensive heart disease with heart failure; J44.9 Chronic obstructive pulmonary disease, unspecified; E78.00 Pure hypercholesterolemia, unspecified; N40.0 Benign prostatic hyperplasia without lower urinary tract symptoms; Z87.891 Personal history of nicotine dependence; Z79.01 Long term (current) use of anticoagulants; Z79.899 Other long term (current) drug therapy
CPT/HCPCS: 33216; 33234; 36415; 71045; 76000; 80048; 85027; 85610; 93005; C1898; J0690; J2250; J3010; Q9967; U0002

== ENCOUNTER → 2021-02-23 | Outpatient (CLI) | payer MEDICARE ==
[~2021-02-23] MED LIST changes: +FURO20TA2 PO; -LISI-538 PO; +LISI20TA33 PO; -LR 1,000 ML IV ONE; +MONT10TA10 PO; -MONT5TAB2 PO; -ceFAZolin SOD 1 GM in D5W MINI-BAG PLUS 50 ML IV ONE
--- NOTE | 2021-02-23 10:59 | REP ---
INDICATION: PAIN COMPARISON: None. TECHNIQUE: AP and frog-lateral views of the left hip FINDINGS: Generalized age-related changes include subtle increased sclerosis to the acetabulum with minimal joint space narrowing. No further overt osteoarthritic or significant degenerative changes are appreciated. No evidence for acute or healed injury. Surrounding soft tissues are normal. IMPRESSION: Generalized age-related changes. <Electronically signed by Matthew Blunt > 02/23/21 [id number]
--- NOTE | 2021-02-23 11:02 | REP ---
INDICATION: PAIN COMPARISON: None. TECHNIQUE: AP, lateral, bilateral oblique and sunrise views. Weightbearing view obtained as well. FINDINGS: The medial and lateral tibiofemoral joint spaces are essentially age-appropriate and maintained on weight-bearing view. Lateral and sunrise views demonstrate somewhat advanced degenerative changes at the patellofemoral joint including periarticular sclerosis, joint space narrowing, marginal osteophytosis, and early quadriceps tendinopathy. There is no evidence for acute fracture or dislocation. No effusion. 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 <Electronically signed by Matthew Blunt > 02/23/21 [id number]
== END ==
LOC: M WUC 10:26
PROVIDERS: ATTEND Nurse Practitioner Adult Health
DX: M25.552 Pain in left hip (principal); M25.562 Pain in left knee

== ENCOUNTER → 2021-03-02 | Outpatient (CLI) | payer MEDICARE ==
[~2021-03-02] MED LIST changes: +GASTROGRAFIN SOLUTION 30ML (Q9963) As Ordered ONE; +ISOVUE-370 76% 100ML VIAL As Ordered ONE; +OMEP40CA4 PO; -OMEP40CA97 PO
--- NOTE | 2021-03-02 14:27 | REP ---
INDICATION: COLON CA COMPARISON: 01/16/2020. TECHNIQUE: CT Scan of the abdomen and pelvis was performed with intravenous administration of 100 cc of Isovue 370, and oral contrast. FINDINGS: Lung bases: There is cardiomegaly. Liver: Normal Gallbladder: Gallstones are again seen in the gallbladder. Spleen: There are multiple calcified granulomas in the spleen. Adrenals: Normal. Pancreas: Normal. Kidneys: Normal. Small and large bowel: There has been a prior partial left colectomy. Free fluid: None. Abdominal aorta: No aneurysm or dissection. Adenopathy: There is a mildly prominent right retrocrural lymph node measuring 1.4 cm in short axis. This is stable.. Appendix: Not inflamed. Osseous structures: There are degenerative changes of the spine without compression deformity. Pelvis: No mass. The prostate is enlarged. IMPRESSION: No new mass or adenopathy. No significant change compared to the prior exam. <Electronically signed by Paul Vaca > 03/02/21 0715
== END ==
LOC: M RAD 09:00
PROVIDERS: ATTEND Specialist
DX: C18.9 Malignant neoplasm of colon, unspecified (principal)
CPT/HCPCS: 74177; Q9963; Q9967

== ENCOUNTER → 2021-10-14 | Outpatient (CLI) | payer MEDICARE ==
[~2021-10-14] MED LIST changes: -GASTROGRAFIN SOLUTION 30ML (Q9963) As Ordered ONE; -ISOVUE-370 76% 100ML VIAL As Ordered ONE; -MONT10TA10 PO; +MONT10TA97 PO
[2021-10-14 14:10] LABS: BLOOD UREA NITROGEN 21 MG/DL (7-18); CALCIUM LEVEL 9.3 MG/DL (8.8-10.2); CARBON DIOXIDE LEVEL 26 MEQ/L (21-32); CHLORIDE LEVEL 108 MEQ/L (98-107); GLOMERULAR FILTRATION RATE > 60.0 (>35); GLUCOSE, FASTING 93 MG/DL (70-100); POTASSIUM SERUM 4.2 MEQ/L (3.5-5.1); SODIUM LEVEL 142 MEQ/L (136-145)
== END ==
LOC: M LAB 11:47
PROVIDERS: ATTEND Internal Medicine Pulmonary Disease
DX: R91.8 Other nonspecific abnormal finding of lung field (principal)

== ENCOUNTER → 2021-10-21 | Outpatient (CLI) | payer MEDICARE ==
[~2021-10-21] MED LIST changes: +ISOVUE-370 76% 100ML VIAL As Ordered ONE
== END ==
LOC: M RAD 09:50
PROVIDERS: ATTEND Internal Medicine Pulmonary Disease
DX: R91.8 Other nonspecific abnormal finding of lung field (principal)
CPT/HCPCS: 71260; Q9967

== ENCOUNTER → 2021-11-06 | Outpatient (CLI) | payer MEDICARE ==
[~2021-11-06] MED LIST changes: +ADVA230A INH; -ISOVUE-370 76% 100ML VIAL As Ordered ONE; +MULT-90 PO; +OCUVTAB4 PO; +[UNRECOGNIZED DRUG - OTHER] NARES
== END ==
LOC: M LABSMTC 09:03
PROVIDERS: ATTEND Anesthesiology
DX: Z01.812 Encounter for preprocedural laboratory examination (principal)

== ENCOUNTER → 2021-11-10 | Outpatient (CLI) | payer MEDICARE ==
[2021-11-10 10:25] LABS: PLATELET COUNT, AUTOMATED 125 10^3/uL (150-450)
[2021-11-10 10:37] LABS: INR 1.56; PROTHROMBIN TIME 19.1 SECONDS (12.7-14.5)
[2021-11-10 10:38] LABS: PARTIAL THROMBOPLASTIN TIME 34.3 SECONDS (25.9-37.0)
== END ==
LOC: M PLALAB 08:59
PROVIDERS: ATTEND Internal Medicine Pulmonary Disease
DX: Z01.812 Encounter for preprocedural laboratory examination (principal); Z79.01 Long term (current) use of anticoagulants

== ENCOUNTER 2021-11-11 08:24 | Day surgery (SDC) | payer MEDICARE ==
[~2021-11-11] VITALS: Ht 177.8 cm; Wt 72.6 kg
[~2021-11-11 08:24] MED LIST changes: +ALBUTEROL SULFATE 2.5 MG/0.5 ML INH NEB SOLN INH ONE; +LIDOCAINE 4% INJ 5ML AMP INH ONE; +LR 1,000 ML IV ONE
[2021-11-11] MEDS ORDERED: LIDOCAINE 4% INJ 5ML AMP INH ONE (09:50)
[2021-11-11] MEDS ORDERED: ROCURONIUM BROMIDE 50 MG/5 ML VIAL As Ordered ONE (10:27)
[2021-11-11] MEDS ORDERED: MIDAZOLAM INJ 2MG/2ML VIAL (J2250 PER 1MG) As Ordered ONE (10:27)
[2021-11-11] MEDS ORDERED: propofoL 200 MG/20 ML VIAL As Ordered ONE (10:27)
[2021-11-11] MEDS ORDERED: LIDOCAINE 2% 100MG/5ML SDV (FOR ANES.) As Ordered ONE (10:27)
[2021-11-11] MEDS ORDERED: fentaNYL 100 MCG/2 ML INJECTION As Ordered ONE (10:27)
[2021-11-11] MEDS ORDERED: KETOROLAC 60MG 2ML VIAL As Ordered ONE (10:27)
[2021-11-11] MEDS ORDERED: dexameTHASONE 4 MG/ML 1ML VIAL (J1100 PER 1MG) As Ordered ONE (10:27)
[2021-11-11] MEDS ORDERED: ONDANSETRON 4MG/2ML VIAL As Ordered ONE (10:27)
[2021-11-11] MEDS ORDERED: SUGAMMADEX SODIUM 500 MG/5 ML VIAL (BRIDION) As Ordered ONE (10:27)
[2021-11-11] MEDS ORDERED: LIDOCAINE 1% SDV 30ML VIAL As Ordered ONE (10:29)
[2021-11-11] MEDS ORDERED: EPINEPHrine 1MG/10ML SYRINGE 1.5IN As Ordered ONE (10:29)
[2021-11-11] MEDS ORDERED: THROMBIN SOLN 5,000 UNITS VIAL As Ordered ONE (10:29)
[2021-11-11] MEDS ORDERED: LIDOCAINE VISCOUS 2% SOLN 15ML UDC As Ordered ONE (10:29)
[2021-11-11] MEDS ORDERED: CETACAINE SPRAY 5GM As Ordered ONE (10:32)
[2021-11-11] MEDS ORDERED: fentaNYL 100 MCG/2 ML INJECTION IV PRN (11:40)
[2021-11-11] MEDS ORDERED: ONDANSETRON 4MG/2ML VIAL IV PRN (11:40)
[2021-11-11] MEDS ORDERED: oxyCODONE 5MG TAB PO PRN (11:40)
[2021-11-11] MEDS ORDERED: LR 1,000 ML IV SCH (11:40)
[2021-11-11 12:35] VITALS: BP 127/68
[2021-11-12] MEDS ORDERED: LIDOCAINE 4% INJ 5ML AMP INH ONE (09:30)
== END 2021-11-11 13:35 | disposition home or self-care (01) ==
LOC: M SDC 08:24
PROVIDERS: ATTEND Internal Medicine Pulmonary Disease
DX: R91.8 Other nonspecific abnormal finding of lung field (principal); R59.0 Localized enlarged lymph nodes; I48.21 Permanent atrial fibrillation; I50.32 Chronic diastolic (congestive) heart failure; I11.0 Hypertensive heart disease with heart failure; Z95.0 Presence of cardiac pacemaker; Z79.01 Long term (current) use of anticoagulants; I35.1 Nonrheumatic aortic (valve) insufficiency; E78.00 Pure hypercholesterolemia, unspecified; R00.0 Tachycardia, unspecified; R00.1 Bradycardia, unspecified; I34.9 Nonrheumatic mitral valve disorder, unspecified; Z85.038 Personal history of other malignant neoplasm of large intestine; I13.0 Hypertensive heart and chronic kidney disease with heart failure and stage 1 through stage 4 chronic kidney disease, or unspecified chronic kidney disease; N18.31 Chronic kidney disease, stage 3a; D69.6 Thrombocytopenia, unspecified; K21.9 Gastro-esophageal reflux disease without esophagitis; J44.9 Chronic obstructive pulmonary disease, unspecified; M19.90 Unspecified osteoarthritis, unspecified site; N40.0 Benign prostatic hyperplasia without lower urinary tract symptoms; R06.83 Snoring; R06.02 Shortness of breath; Z87.891 Personal history of nicotine dependence; Z79.899 Other long term (current) drug therapy; Z79.51 Long term (current) use of inhaled steroids
CPT/HCPCS: 31624; 31629; 31654; 36415; 85027; 85610; 85730; 87070; 87102; 87116; 87205; 87206; 88104; 88173; 88305; 88341; 88342; J1100; J1885; J2250; J2405; J3010

== ENCOUNTER → 2021-11-11 | Outpatient (CLI) | payer MEDICARE ==
[2021-11-11 08:57] LABS: PLATELET COUNT, AUTOMATED 124 10^3/uL (150-450)
[2021-11-11 09:24] LABS: INR 1.36; PROTHROMBIN TIME 17.2 SECONDS (12.7-14.5)
[2021-11-11 09:25] LABS: PARTIAL THROMBOPLASTIN TIME 33.3 SECONDS (25.9-37.0)
== END ==
LOC: M LAB 08:05
PROVIDERS: ATTEND Internal Medicine Pulmonary Disease
DX: Z01.812 Encounter for preprocedural laboratory examination (principal); Z79.01 Long term (current) use of anticoagulants

== ENCOUNTER → 2021-11-24 | Outpatient (CLI) | payer MEDICARE ==
[~2021-11-24] MED LIST changes: -ALBUTEROL SULFATE 2.5 MG/0.5 ML INH NEB SOLN INH ONE; -LIDOCAINE 4% INJ 5ML AMP INH ONE; +LISI20TA33; -LR 1,000 ML IV ONE
== END ==
LOC: M ONCR 08:48
PROVIDERS: ATTEND General Practice
DX: C34.91 Malignant neoplasm of unspecified part of right bronchus or lung (principal); I25.10 Atherosclerotic heart disease of native coronary artery without angina pectoris; Z80.1 Family history of malignant neoplasm of trachea, bronchus and lung; Z85.038 Personal history of other malignant neoplasm of large intestine; Z87.891 Personal history of nicotine dependence; Z92.21 Personal history of antineoplastic chemotherapy

== ENCOUNTER 2021-12-02 10:19 | Outpatient (RCR) | payer MEDICARE | END 2021-12-10 | PROVIDERS: ATTEND General Practice | DX: C34.11 Malignant neoplasm of upper lobe, right bronchus or lung (principal) ==

== ENCOUNTER 2021-12-28 09:55 | Outpatient (RCR) | payer MEDICARE | END 2022-01-09 | LOC: M ONCR 09:55 | PROVIDERS: ATTEND General Practice | DX: C34.11 Malignant neoplasm of upper lobe, right bronchus or lung (principal) ==

== ENCOUNTER → 2022-04-01 | Outpatient (CLI) | payer MEDICARE | LOC: M ONCR 13:14 | PROVIDERS: ATTEND General Practice | DX: C34.11 Malignant neoplasm of upper lobe, right bronchus or lung (principal); R53.83 Other fatigue; Z79.01 Long term (current) use of anticoagulants; Z79.899 Other long term (current) drug therapy; Z85.038 Personal history of other malignant neoplasm of large intestine; Z85.79 Personal history of other malignant neoplasms of lymphoid, hematopoietic and related tissues; Z87.891 Personal history of nicotine dependence; Z90.49 Acquired absence of other specified parts of digestive tract; Z92.21 Personal history of antineoplastic chemotherapy; Z92.3 Personal history of irradiation ==

== ENCOUNTER → 2022-04-08 | Outpatient (CLI) | payer MEDICARE ==
[~2022-04-08] MED LIST changes: +GASTROGRAFIN SOLUTION 30ML (Q9963) As Ordered ONE; +ISOVUE-370 76% 100ML VIAL As Ordered ONE
== END ==
LOC: M RAD 08:20
PROVIDERS: ATTEND General Practice
DX: C34.11 Malignant neoplasm of upper lobe, right bronchus or lung (principal)
CPT/HCPCS: 71260; 74177; Q9963; Q9967

== ENCOUNTER 2022-04-28 12:38 | Outpatient (RCR) | payer MEDICARE ==
[~2022-04-28 12:38] MED LIST changes: -GASTROGRAFIN SOLUTION 30ML (Q9963) As Ordered ONE; -ISOVUE-370 76% 100ML VIAL As Ordered ONE
== END 2022-05-12 ==
LOC: M ONCR 12:38
PROVIDERS: ATTEND General Practice
DX: C79.72 Secondary malignant neoplasm of left adrenal gland (principal)

== ENCOUNTER 2022-07-11 00:09 | Emergency (ER) | payer MEDICARE ==
[~2022-07-11] VITALS: Ht 180.3 cm; Wt 68.2 kg
[2022-07-11 00:44] LABS: BASO % 0.5 % (0.0-1.0); HEMATOCRIT 40.8 % (42.0-52.0); HEMOGLOBIN 13.8 g/dl (13.5-17.5); LYMPH # 0.7 10^3/uL (1.5-5.0); LYMPH % 17.7 % (24.0-44.0); MEAN CORPUSCULAR HEMOGLOBIN 32.3 pg (27.0-33.0); MEAN CORPUSCULAR HGB CONC 33.8 g/dl (32.0-36.5); MEAN CORPUSCULAR VOLUME 95.6 fl (80.0-96.0); MONO # 0.7 10^3/uL (0.0-0.8); MONO % 15.8 % (2.0-8.0); NEUTROPHILS # 2.7 10^3/uL (1.5-8.5); NEUTROPHILS % 65.8 % (36.0-66.0); RED BLOOD COUNT 4.27 10^6/uL (4.30-6.10); WHITE BLOOD COUNT 4.2 10^3/uL (4.0-10.0)
[2022-07-11 01:04] LABS: PLATELET COUNT, AUTOMATED 80 10^3/uL (150-450)
[2022-07-11 01:16] LABS: RSV AMPLIFICATION NEGATIVE (NEGATIVE)
[2022-07-11 01:22] LABS: CK-MB VALUE MASS 1.1 NG/ML (<3.6); MB/CK RELATIVE INDEX 0.93 (< OR =4)
[2022-07-11 01:29] LABS: ALBUMIN 3.1 GM/DL (3.2-5.2); ALT/SGPT 32 U/L (12-78); BILIRUBIN,DIRECT 0.4 MG/DL (0.0-0.2); BLOOD UREA NITROGEN 24 MG/DL (7-18); CALCIUM LEVEL 8.3 MG/DL (8.8-10.2); CARBON DIOXIDE LEVEL 24 MEQ/L (21-32); CHLORIDE LEVEL 102 MEQ/L (98-107); CREATININE FOR GFR 1.32 MG/DL (0.70-1.30); ETHYL ALCOHOL (ETHANOL) < 0.003 % (0.000-0.010); GLOMERULAR FILTRATION RATE 54.7 (>35); GLUCOSE, FASTING 111 MG/DL (70-100); POTASSIUM SERUM 4.9 MEQ/L (3.5-5.1); SODIUM LEVEL 135 MEQ/L (136-145)
[2022-07-11] MEDS ORDERED: NS 500 ML IV ONE ×2 (01:35→04:45)
[2022-07-11 02:16] LABS: CK-MB VALUE MASS 2.1 NG/ML (<3.6); MB/CK RELATIVE INDEX 1.21 (< OR =4)
[2022-07-11 03:10] LABS: NT-PRO BNP 933 PG/ML (<450)
[2022-07-11 03:46] LABS: MB/CK RELATIVE INDEX 1.09 (< OR =4)
[2022-07-11 04:37] LABS: INR 1.99; PROTHROMBIN TIME 22.9 SECONDS (12.5-14.5)
[2022-07-11] MEDS ORDERED: ASPIRIN 81 MG CHEW TABLET PO ONE (04:45)
[2022-07-11 06:22] LABS: CK-MB VALUE MASS 5.8 NG/ML (<3.6); MB/CK RELATIVE INDEX 1.07 (< OR =4)
[2022-07-11 08:58] VITALS: BP 117/56
== END 2022-07-11 09:00 | disposition short-term general hospital (02) ==
LOC: M ED 00:09 → EDBD 00:09 → M ED 09:00
DX: I21.4 Non-ST elevation (NSTEMI) myocardial infarction (principal); R55 Syncope and collapse; C18.9 Malignant neoplasm of colon, unspecified; C78.7 Secondary malignant neoplasm of liver and intrahepatic bile duct; M79.651 Pain in right thigh; I48.91 Unspecified atrial fibrillation; R94.31 Abnormal electrocardiogram [ECG] [EKG]; I11.0 Hypertensive heart disease with heart failure; I50.9 Heart failure, unspecified; J43.9 Emphysema, unspecified; Z95.0 Presence of cardiac pacemaker; Z79.899 Other long term (current) drug therapy; Z79.01 Long term (current) use of anticoagulants

== ENCOUNTER → 2022-07-19 | Outpatient (CLI) | payer MEDICARE ==
[~2022-07-19] MED LIST changes: +GASTROGRAFIN SOLUTION 30ML As Ordered ONE; +ISOVUE-370 76% 100ML VIAL As Ordered ONE
== END ==
LOC: M RAD 09:19
PROVIDERS: ATTEND General Practice
DX: C34.11 Malignant neoplasm of upper lobe, right bronchus or lung (principal); C79.72 Secondary malignant neoplasm of left adrenal gland
CPT/HCPCS: 71260; 74177; Q9963; Q9967

== ENCOUNTER → 2022-07-23 | Outpatient (REF) | payer MEDICARE ==
[~2022-07-23] MED LIST changes: -GASTROGRAFIN SOLUTION 30ML As Ordered ONE; -ISOVUE-370 76% 100ML VIAL As Ordered ONE
[2022-07-23 13:49] LABS: INR 3.95; PROTHROMBIN TIME 39.2 SECONDS (12.5-14.5)
== END ==
LOC: M LAB REF 13:01
PROVIDERS: ATTEND Nurse Practitioner Adult Health
DX: Z51.81 Encounter for therapeutic drug level monitoring (principal)

== ENCOUNTER → 2022-07-30 | Outpatient (CLI) | payer MEDICARE | LOC: M ONCR 13:49 | PROVIDERS: ATTEND General Practice | DX: C34.11 Malignant neoplasm of upper lobe, right bronchus or lung (principal); Z86.16 Personal history of COVID-19; C77.0 Secondary and unspecified malignant neoplasm of lymph nodes of head, face and neck; C79.72 Secondary malignant neoplasm of left adrenal gland ==

== ENCOUNTER → 2022-10-01 | Outpatient (CLI) | payer MEDICARE ==
[~2022-10-01] MED LIST changes: +ASPI81TA26 PO; +BACTDSTA PO; +DIGO0.123 PO; +FLUT1BLS IH; -LISI20TA33
[2022-10-01 15:35] LABS: EOS # 0.1 10^3/uL (0.0-0.5); EOS % 2.7 % (0.0-3.0); HEMATOCRIT 33.8 % (42.0-52.0); HEMOGLOBIN 10.7 g/dl (13.5-17.5); LYMPH # 0.6 10^3/uL (1.5-5.0); LYMPH % 21.4 % (24.0-44.0); MEAN CORPUSCULAR HEMOGLOBIN 31.8 pg (27.0-33.0); MEAN CORPUSCULAR HGB CONC 31.7 g/dl (32.0-36.5); MEAN CORPUSCULAR VOLUME 100.6 fl (80.0-96.0); MONO # 0.5 10^3/uL (0.0-0.8); MONO % 17.4 % (2.0-8.0); NEUTROPHILS # 1.7 10^3/uL (1.5-8.5); NEUTROPHILS % 57.2 % (36.0-66.0); PLATELET COUNT, AUTOMATED 141 10^3/uL (150-450); RED BLOOD COUNT 3.36 10^6/uL (4.30-6.10)
[2022-10-01 15:58] LABS: ALKALINE PHOSPHATASE 91 U/L (46-116); ALT/SGPT 21 U/L (7.0-40); AST/SGOT 47 U/L (<34); BILIRUBIN,TOTAL 0.8 MG/DL (0.3-1.2); BLOOD UREA NITROGEN 22 MG/DL (9-23); CALCIUM LEVEL 8.5 MG/DL (8.3-10.6); CARBON DIOXIDE LEVEL 25 MMOL/L (20-31); CHLORIDE LEVEL 106 MMOL/L (98-107); CREATININE FOR GFR 1.15 MG/DL (0.70-1.30); GLOMERULAR FILTRATION RATE > 60.0 (>35); GLUCOSE, FASTING 94 MG/DL (74-106); POTASSIUM SERUM 4.1 MMOL/L (3.5-5.1); SODIUM LEVEL 139 MMOL/L (136-145); TOTAL PROTEIN 6.2 G/DL (5.7-8.2)
== END ==
LOC: M ONCR 13:55
PROVIDERS: ATTEND General Practice
DX: C34.11 Malignant neoplasm of upper lobe, right bronchus or lung (principal); C79.72 Secondary malignant neoplasm of left adrenal gland; C18.7 Malignant neoplasm of sigmoid colon; R31.9 Hematuria, unspecified; R63.4 Abnormal weight loss; Z79.899 Other long term (current) drug therapy; Z86.16 Personal history of COVID-19; Z87.891 Personal history of nicotine dependence; Z90.49 Acquired absence of other specified parts of digestive tract; Z92.21 Personal history of antineoplastic chemotherapy; Z92.3 Personal history of irradiation
CPT/HCPCS: 36415; 80053; 82378; 85025; G0463

== ENCOUNTER → 2022-12-01 | Outpatient (CLI) | payer MEDICARE | LOC: M WUC 11:55 | PROVIDERS: ATTEND Physician Assistant Medical | DX: I48.21 Permanent atrial fibrillation (principal) ==

== ENCOUNTER → 2023-01-12 | Outpatient (CLI) | payer MEDICARE ==
[~2023-01-12] MED LIST changes: +GASTROGRAFIN SOLUTION 30ML As Ordered ONE; +ISOVUE-370 76% 100ML VIAL As Ordered ONE; +MONT4TAB2 PO; -SING4CHW9 PO
== END ==
LOC: M RAD 10:29
PROVIDERS: ATTEND General Practice
DX: C34.11 Malignant neoplasm of upper lobe, right bronchus or lung (principal); C79.72 Secondary malignant neoplasm of left adrenal gland
CPT/HCPCS: 71260; 74177; Q9963; Q9967

== ENCOUNTER → 2023-01-27 | Outpatient (CLI) | payer MEDICARE ==
[~2023-01-27] MED LIST changes: -GASTROGRAFIN SOLUTION 30ML As Ordered ONE; -ISOVUE-370 76% 100ML VIAL As Ordered ONE
== END ==
LOC: M ONCR 12:44
PROVIDERS: ATTEND General Practice
DX: C34.11 Malignant neoplasm of upper lobe, right bronchus or lung (principal); C79.72 Secondary malignant neoplasm of left adrenal gland; J90 Pleural effusion, not elsewhere classified; Z71.2 Person consulting for explanation of examination or test findings; Z79.899 Other long term (current) drug therapy; Z85.038 Personal history of other malignant neoplasm of large intestine; Z87.891 Personal history of nicotine dependence; Z90.49 Acquired absence of other specified parts of digestive tract; Z92.21 Personal history of antineoplastic chemotherapy; Z92.3 Personal history of irradiation

== ENCOUNTER → 2023-02-21 | Outpatient (CLI) | payer MEDICARE ==
[2023-02-21 18:09] LABS: BLOOD UREA NITROGEN 30 MG/DL (9-23); CARBON DIOXIDE LEVEL 27 MMOL/L (20-31); CHLORIDE LEVEL 105 MMOL/L (98-107); CREATININE FOR GFR 0.96 MG/DL (0.70-1.30); GLOMERULAR FILTRATION RATE > 60.0 (>35); GLUCOSE, FASTING 142 MG/DL (74-106); SODIUM LEVEL 138 MMOL/L (136-145)
== END ==
LOC: M WUC 13:31
PROVIDERS: ATTEND Physician Assistant
DX: I50.32 Chronic diastolic (congestive) heart failure (principal)

== ENCOUNTER → 2023-03-21 | Outpatient (CLI) | payer MEDICARE ==
[2023-03-21 11:55] LABS: BLOOD UREA NITROGEN 32 MG/DL (9-23); CALCIUM LEVEL 7.9 MG/DL (8.3-10.6); CARBON DIOXIDE LEVEL 32 MMOL/L (20-31); CHLORIDE LEVEL 103 MMOL/L (98-107); CREATININE FOR GFR 0.95 MG/DL (0.70-1.30); GLOMERULAR FILTRATION RATE > 60.0 (>35); GLUCOSE, FASTING 87 MG/DL (74-106); MAGNESIUM LEVEL 2.1 MG/DL (1.8-2.4); SODIUM LEVEL 141 MMOL/L (136-145)
== END ==
LOC: M LAB 09:53
PROVIDERS: ATTEND Physician Assistant
DX: I50.32 Chronic diastolic (congestive) heart failure (principal)

== ENCOUNTER → 2023-04-18 | Outpatient (REF) | payer MEDICARE | LOC: M LAB REF 12:09 | PROVIDERS: ATTEND Nurse Practitioner Adult Health | DX: I50.33 Acute on chronic diastolic (congestive) heart failure (principal) ==

== ENCOUNTER → 2023-04-28 | Outpatient (CLI) | payer MEDICARE ==
[~2023-04-28] MED LIST changes: +ISOVUE-370 76% 100ML VIAL As Ordered ONE
== END ==
LOC: M RAD 15:29
PROVIDERS: ATTEND General Practice
DX: C34.11 Malignant neoplasm of upper lobe, right bronchus or lung (principal)
CPT/HCPCS: 71260; Q9967

== ENCOUNTER → 2023-04-29 | Outpatient (CLI) | payer MEDICARE ==
[~2023-04-29] MED LIST changes: -ISOVUE-370 76% 100ML VIAL As Ordered ONE
== END ==
LOC: M ONCR 13:21
PROVIDERS: ATTEND Radiology Radiation Oncology
DX: C34.11 Malignant neoplasm of upper lobe, right bronchus or lung (principal); Z71.2 Person consulting for explanation of examination or test findings; Z79.899 Other long term (current) drug therapy; Z85.038 Personal history of other malignant neoplasm of large intestine; Z87.891 Personal history of nicotine dependence; Z92.21 Personal history of antineoplastic chemotherapy; Z92.3 Personal history of irradiation

== ENCOUNTER → 2023-07-14 | Outpatient (CLI) | payer MEDICARE ==
[2023-07-14 14:57] LABS: BLOOD UREA NITROGEN 36 MG/DL (9-23); CALCIUM LEVEL 8.7 MG/DL (8.3-10.6); CARBON DIOXIDE LEVEL 33 MMOL/L (20-31); CHLORIDE LEVEL 104 MMOL/L (98-107); CREATININE FOR GFR 1.17 MG/DL (0.70-1.30); GLOMERULAR FILTRATION RATE > 60.0 (>35); GLUCOSE, FASTING 84 MG/DL (74-106); POTASSIUM SERUM 4.1 MMOL/L (3.5-5.1); SODIUM LEVEL 144 MMOL/L (136-145)
== END ==
LOC: M LAB 13:14
PROVIDERS: ATTEND Physician Assistant
DX: I50.32 Chronic diastolic (congestive) heart failure (principal)

== ENCOUNTER → 2023-08-11 | Outpatient (CLI) | payer MEDICARE ==
[2023-08-11 15:11] LABS: ALBUMIN 2.7 G/DL (3.2-5.2); BILIRUBIN,TOTAL 0.8 MG/DL (0.3-1.2); CALCIUM LEVEL 8.4 MG/DL (8.3-10.6); CREATININE FOR GFR 1.48 MG/DL (0.70-1.30); GLOMERULAR FILTRATION RATE 47.9 (>35); POTASSIUM SERUM 4.6 MMOL/L (3.5-5.1); TOTAL PROTEIN 6.4 G/DL (5.7-8.2)
== END ==
LOC: M ONCM 06-30 08:29 → EDSTATUS 06-30 08:50 → M ONCR 13:57
PROVIDERS: ATTEND General Practice
DX: C34.11 Malignant neoplasm of upper lobe, right bronchus or lung (principal); C79.72 Secondary malignant neoplasm of left adrenal gland

== ENCOUNTER → 2023-08-17 | Outpatient (CLI) | payer MEDICARE ==
[~2023-08-17] MED LIST changes: +GASTROGRAFIN SOLUTION 30ML As Ordered ONE; +ISOVUE-370 76% 100ML VIAL As Ordered ONE
== END ==
LOC: M RAD 11:21
PROVIDERS: ATTEND General Practice
DX: C34.11 Malignant neoplasm of upper lobe, right bronchus or lung (principal); C79.72 Secondary malignant neoplasm of left adrenal gland
CPT/HCPCS: 71260; 74177; Q9963; Q9967

== ENCOUNTER → 2023-08-19 | Outpatient (CLI) | payer MEDICARE ==
[~2023-08-19] MED LIST changes: -GASTROGRAFIN SOLUTION 30ML As Ordered ONE; -ISOVUE-370 76% 100ML VIAL As Ordered ONE
== END ==
LOC: M ONCR 12:48
PROVIDERS: ATTEND General Practice
DX: Z08 Encounter for follow-up examination after completed treatment for malignant neoplasm (principal); Z85.118 Personal history of other malignant neoplasm of bronchus and lung; Z85.038 Personal history of other malignant neoplasm of large intestine; Z85.858 Personal history of malignant neoplasm of other endocrine glands; Z79.899 Other long term (current) drug therapy; Z71.2 Person consulting for explanation of examination or test findings; Z87.891 Personal history of nicotine dependence; Z90.49 Acquired absence of other specified parts of digestive tract; Z92.21 Personal history of antineoplastic chemotherapy; Z92.3 Personal history of irradiation